=== PATIENT | male | born 1970 | race African-American/Black ===

== ENCOUNTER 2017-05-26 12:28 | Emergency (ER) | payer MEDICAID ==
[~2017-05-26] VITALS: Ht 165.1 cm; Wt 66.0 kg
[2017-05-26] MEDS ORDERED: BACITRACIN ZINC OINT UDPKT TOP ONE (14:30)
[2017-05-26] MEDS ORDERED: LIDOCAINE HCL 1% 20ML VIAL (Pyxis) INJ MC ONE (14:30)
[2017-05-26] MEDS ORDERED: TETANUS, DIPHTHERIA, PERTUSSIS VAC/PF 0.5ML (>7YR OLD) IM ONE (14:30)
[2017-05-26 15:45] VITALS: BP 110/63
== END 2017-05-26 16:01 | disposition home or self-care (01) ==
LOC: ER 12:28
PROC: 0HQFXZZ Repair Right Hand Skin, External Approach (ICD-10-PCS; principal; 2017-05-26)
DX: S61.218A Laceration without foreign body of other finger without damage to nail, initial encounter (principal); X58.XXXA Exposure to other specified factors, initial encounter; F12.10 Cannabis abuse, uncomplicated; F10.20 Alcohol dependence, uncomplicated; Y93.89 Activity, other specified; Y92.89 Other specified places as the place of occurrence of the external cause
CPT/HCPCS: 12002; 90471; 90715; 99284; J3490; X7700; Z7610

== ENCOUNTER 2017-06-06 15:31 | Emergency (ER) | payer MEDICAID ==
[~2017-06-06] VITALS: Ht 165.1 cm; Wt 68.0 kg
[2017-06-06 17:00] VITALS: BP 110/76
== END 2017-06-06 18:22 | disposition home or self-care (01) ==
LOC: ER 16:36
DX: S61.011D Laceration without foreign body of right thumb without damage to nail, subsequent encounter (principal); F12.10 Cannabis abuse, uncomplicated; X58.XXXD Exposure to other specified factors, subsequent encounter; Y93.89 Activity, other specified; Y92.89 Other specified places as the place of occurrence of the external cause; Y99.8 Other external cause status
CPT/HCPCS: 99281; Z7610

== ENCOUNTER 2017-11-27 05:54 | Emergency (ER) | payer SELFPAY ==
[~2017-11-27] VITALS: Ht 177.8 cm; Wt 73.0 kg
[2017-11-27] MEDS ORDERED: SODIUM CHLORIDE 0.9% 1,000 ML IV ONE (06:49)
[2017-11-27 07:07] LABS: BASOPHILS % 0.4 % (0.0-2.0); EOSINOPHILS % 1.8 % (0.0-5.0); HEMATOCRIT. 40.5 % (42.0-52.0); LYMPHOCYTES % 7.5 % (20.0-50.0); MEAN CORPUSCULAR VOLUME 98.4 fL (80.0-94.0); MEAN PLATELET VOLUME 8.4 fl (7.4-10.4); MONOCYTES % 9.8 % (2.0-8.0); NEUTROPHILS % 80.5 % (40.0-76.0); PLATELET 165 x1000/uL (130-400); RED BLOOD CELL COUNT 4.12 mill/uL (4.7-6.1); RED CELL DISTRIBUTION WIDTH 14.4 % (11.6-14.6)
[2017-11-27 07:14] LABS: INR 0.9; PROTHROMBIN TIME 9.4 sec (9.4-11.6)
[2017-11-27 07:24] LABS: CHLORIDE 100 mEq/L (98-107); TROPONIN I < 0.02 ng/mL (0.00-0.04)
[2017-11-27] MEDS ORDERED: ONDANSETRON HCL 4MG/2ML VIAL IV STA (08:24)
[2017-11-27] MEDS ORDERED: MORPHINE SULFATE 4 MG/ML CPJ (NOT FOR IM USE) IV STA (08:24)
[2017-11-27] MEDS ORDERED: IOHEXOL-350 100 ML BOTTLE ONE (08:47)
[2017-11-27] MEDS ORDERED: NITROGLYCERIN 50MG PREMIX 250 ML IV ONE (09:00)
[2017-11-27 09:27] LABS: TROPONIN I < 0.02 ng/mL (0.00-0.04)
[2017-11-27 11:33] VITALS: BP 116/83
== END 2017-11-27 11:37 | disposition home or self-care (01) ==
LOC: ER 05:54
DX: R07.9 Chest pain, unspecified (principal); F10.229 Alcohol dependence with intoxication, unspecified; F19.10 Other psychoactive substance abuse, uncomplicated; F14.10 Cocaine abuse, uncomplicated; F12.10 Cannabis abuse, uncomplicated; R10.9 Unspecified abdominal pain; Y90.4 Blood alcohol level of 80-99 mg/100 ml
CPT/HCPCS: 36415; 71045; 71275; 74174; 80053; 83690; 83880; 84484; 85025; 85610; 93005; 96361; 96374; 96375; 99285; G0482; J2270; J2405; J7030; Q9967

== ENCOUNTER 2019-04-21 14:29 | Emergency (ER) | payer MEDICAID ==
[~2019-04-21] VITALS: Ht 167.6 cm; Wt 70.0 kg
[2019-04-21 15:32] VITALS: BP 156/100
== END 2019-04-21 16:30 | disposition left against medical advice (07) ==
LOC: ER 14:29
DX: Z53.21 Procedure and treatment not carried out due to patient leaving prior to being seen by health care provider (principal)

== ENCOUNTER 2019-08-02 17:27 | Inpatient (IN) | payer MEDICAID ==
[~2019-08-02] VITALS: Ht 165.1 cm; Wt 65.3 kg
[2019-08-02] MEDS ORDERED: SODIUM CHLORIDE 0.9% 1,000 ML IV ONE (18:27)
[2019-08-02] MEDS ORDERED: MORPHINE SULFATE 4 MG/ML CPJ (NOT FOR IM USE) IV STA (18:27)
[2019-08-02 18:45] LABS: BASOPHILS % 0.6 % (0.0-2.0); EOSINOPHILS % 0.2 % (0.0-5.0); HEMOGLOBIN. 13.5 g/dL (14.0-18.0); LYMPHOCYTES % 7.6 % (20.0-50.0); MEAN CORPUSCULAR HEMOGLOBIN 35.5 pg (28.0-32.0); MEAN CORPUSCULAR VOLUME 105.3 fL (80.0-94.0); MEAN PLATELET VOLUME 8.2 fl (7.4-10.4); NEUTROPHILS % 85.6 % (40.0-76.0); PLATELET 156 x1000/uL (130-400); RED CELL DISTRIBUTION WIDTH 14.3 % (11.6-14.6)
[2019-08-02 18:46] LABS: CLARITY URINE CLEAR (CLEAR); COLOR URINE YELLOW (YELLOW); KETONES URINE 2+ (NEGATIVE); LEUKOCYTE ESTERASE URINE NEGATIVE (NEGATIVE); NITRITE URINE NEGATIVE (NEGATIVE); OCCULT BLOOD URINE NEGATIVE (NEGATIVE); PROTEIN URINE 2+ (NEGATIVE); SPECIFIC GRAVITY URINE 1.024 (1.005-1.030); UROBILINOGEN URINE 0.2 E.U./dL (0.2-1.0)
[2019-08-02 18:47] LABS: INR 0.9; PROTHROMBIN TIME 9.6 sec (9.6-11.0)
[2019-08-02 18:50] LABS: CHLORIDE 102 mEq/L (98-107)
[2019-08-02] MEDS ORDERED: MORPHINE SULFATE 4 MG/ML CPJ (NOT FOR IM USE) IV ONE (21:30)
[2019-08-02 23:30] VITALS: BP 155/80
[2019-08-03] MEDS: ONDANSETRON HCL 4MG/2ML INJ IV PRN (00:54)
[2019-08-03] MEDS: MORPHINE SULFATE 2 MG/ML CPJ (NOT FOR IM USE) IV PRN ×5 (00:55→18:22)
[2019-08-03] MEDS ORDERED: LORAZEPAM 2MG/ML CPJ IM PRN (01:15)
[2019-08-03] MEDS ORDERED: CLONIDINE 0.1MG TABLET PO PRN (01:15)
[2019-08-03] MEDS ORDERED: FOLIC ACID 1 MG, THIAMINE HCL 100 MG, MVI, ADULT NO.1 10 ML in DEXTROSE 5% WATER 1,000 ML IV NR ×4 (04:00)
[2019-08-03] MEDS: CHLORDIAZEPOXIDE 25MG CAPSULE PO SCH ×2 (05:53→13:57)
[2019-08-03 08:00] VITALS: BP 142/101
[2019-08-03] MEDS: ENOXAPARIN 40MG/0.4ML SYR SUBCUT SCH (08:44)
[2019-08-03 10:41] LABS: CHLORIDE 103 mEq/L (98-107)
[2019-08-03 10:43] LABS: HEMATOCRIT. 40.7 % (42.0-52.0); HEMOGLOBIN. 13.9 g/dL (14.0-18.0); MEAN CORPUSCULAR HEMOGLOBIN 36.1 pg (28.0-32.0); MEAN CORPUSCULAR VOLUME 105.7 fL (80.0-94.0); PLATELET 125 x1000/uL (130-400); RED BLOOD CELL COUNT 3.85 mill/uL (4.7-6.1); RED CELL DISTRIBUTION WIDTH 14.4 % (11.6-14.6)
[2019-08-03 12:00] VITALS: BP 158/109
[2019-08-03] MEDS ORDERED: SODIUM CHLORIDE 0.9% 1,000 ML IV SCH (12:00)
[2019-08-03 14:35] LABS: PLATELET ESTIMATE SLIGHTLY DECREASED
[2019-08-03] MEDS ORDERED: DIATR MEGLU/DIATRIZOATE SOLN 30ML PO NR (15:00)
[2019-08-03] MEDS ORDERED: BISACODYL 10MG SUPP PR PRN (15:00)
[2019-08-03 16:00] VITALS: BP 159/106
[2019-08-03] MEDS ORDERED: DIATR MEGLU/DIATRIZOATE SOLN 120ML ONE (17:48)
[2019-08-03 20:00] VITALS: BP 156/70
[2019-08-03 20:14] LABS: FOLIC ACID (FOLATE) SERUM >20 ng/mL ng/mL (>5.38)
[2019-08-03 20:26] LABS: VITAMIN B12 SERUM 879 pg/mL (211-911)
[2019-08-04] VITALS: BP 138/68
[2019-08-04] MEDS: CHLORDIAZEPOXIDE 25MG CAPSULE PO SCH ×4 (00:03→21:35)
[2019-08-04] MEDS: ONDANSETRON HCL 4MG/2ML INJ IV PRN (00:03)
[2019-08-04] MEDS: MORPHINE SULFATE 2 MG/ML CPJ (NOT FOR IM USE) IV PRN ×5 (00:06→23:24)
[2019-08-04 04:00] VITALS: BP 144/81
[2019-08-04 06:08] LABS: BASOPHILS % 0.3 % (0.0-2.0); EOSINOPHILS % 0.7 % (0.0-5.0); HEMATOCRIT. 39.7 % (42.0-52.0); HEMOGLOBIN. 13.7 g/dL (14.0-18.0); LYMPHOCYTES % 11.5 % (20.0-50.0); MEAN CORPUSCULAR VOLUME 104.7 fL (80.0-94.0); MEAN PLATELET VOLUME 8.3 fl (7.4-10.4); MONOCYTES % 7.5 % (2.0-8.0); PLATELET 109 x1000/uL (130-400); RED BLOOD CELL COUNT 3.79 mill/uL (4.7-6.1); RED CELL DISTRIBUTION WIDTH 14.2 % (11.6-14.6)
[2019-08-04 06:12] LABS: CHLORIDE 101 mEq/L (98-107)
[2019-08-04 08:00] VITALS: BP 129/95
[2019-08-04] MEDS: MULTIVITAMINS,THER W-MINERALS TABLET PO SCH (08:36)
[2019-08-04] MEDS: ENOXAPARIN 40MG/0.4ML SYR SUBCUT SCH (08:36)
[2019-08-04] MEDS ORDERED: POTASSIUM CHLORIDE INJ 40 MEQ in DEXT 5% WATER 500 ML IV NR (09:30)
[2019-08-04 12:00] VITALS: BP 127/100
[2019-08-04 16:00] VITALS: BP 128/92
[2019-08-04 20:00] VITALS: BP 131/89
[2019-08-04] MEDS ORDERED: DEXTROSE 50% WATER 50ML SYRINGE IV PRN (22:30)
[2019-08-04] MEDS: INSULIN LISPRO 100 UNITS/ML SUBCUT SCH (23:32)
[2019-08-04] MEDS: BLOOD SUGAR DIAGNOSTIC STRIP TEST SCH (23:32)
[2019-08-05] VITALS: BP 126/88
[2019-08-05 04:00] VITALS: BP 105/72
[2019-08-05] MEDS: CHLORDIAZEPOXIDE 25MG CAPSULE PO SCH (05:28)
[2019-08-05] MEDS: MORPHINE SULFATE 2 MG/ML CPJ (NOT FOR IM USE) IV PRN ×2 (05:51→10:54)
[2019-08-05] MEDS: BLOOD SUGAR DIAGNOSTIC STRIP TEST SCH (06:00)
[2019-08-05] MEDS: INSULIN LISPRO 100 UNITS/ML SUBCUT SCH (06:00)
[2019-08-05 07:38] LABS: BASOPHILS % 0.2 % (0.0-2.0); HEMATOCRIT. 37.4 % (42.0-52.0); HEMOGLOBIN. 12.6 g/dL (14.0-18.0); LYMPHOCYTES % 10.2 % (20.0-50.0); MEAN CORPUSCULAR HEMOGLOBIN 35.5 pg (28.0-32.0); MEAN CORPUSCULAR VOLUME 105.2 fL (80.0-94.0); MEAN PLATELET VOLUME 8.2 fl (7.4-10.4); MONOCYTES % 10.4 % (2.0-8.0); NEUTROPHILS % 78.2 % (40.0-76.0); PLATELET 105 x1000/uL (130-400); RED BLOOD CELL COUNT 3.56 mill/uL (4.7-6.1); RED CELL DISTRIBUTION WIDTH 14.3 % (11.6-14.6)
[2019-08-05 08:00] VITALS: BP 110/72
[2019-08-05 08:11] LABS: CHLORIDE 104 mEq/L (98-107)
[2019-08-05 08:19] LABS: AMYLASE 136 IU/L (25-115)
[2019-08-05] MEDS: MULTIVITAMINS,THER W-MINERALS TABLET PO SCH (09:22)
[2019-08-05] MEDS: ENOXAPARIN 40MG/0.4ML SYR SUBCUT SCH (09:22)
[2019-08-05 10:54] VITALS: BP 113/77
== END 2019-08-05 11:55 | disposition left against medical advice (07) | DRG 282 ==
LOC: ER 17:40 → ENRESERV 21:54 → 6EST 22:00 → EDBEDREQ 22:03 → EDBEDREQTM 22:03
PROVIDERS: ADMIT Internal Medicine; ATTEND Internal Medicine
DX: K85.20 Alcohol induced acute pancreatitis without necrosis or infection (principal); K76.0 Fatty (change of) liver, not elsewhere classified; E11.65 Type 2 diabetes mellitus with hyperglycemia; D50.9 Iron deficiency anemia, unspecified; K57.90 Diverticulosis of intestine, part unspecified, without perforation or abscess without bleeding; D53.9 Nutritional anemia, unspecified; F10.10 Alcohol abuse, uncomplicated; K59.00 Constipation, unspecified; K86.0 Alcohol-induced chronic pancreatitis; Z79.4 Long term (current) use of insulin
CPT/HCPCS: 36415; 71045; 74176; 80048; 80076; 81003; 82150; 82607; 82746; 82962; 83036; 83605; 83735; 84484; 93005; 93970; 96361; 96365; 96372; 96375; 96376; 97161; 97165; 99285; J1650; J2270; J2405; J3411; J3480; J3490; J7030; J7040; J7060; J7070; Q9963

== ENCOUNTER 2019-11-11 14:26 | Emergency (ER) | payer MEDICAID ==
[~2019-11-11] VITALS: Ht 172.7 cm; Wt 70.0 kg
[2019-11-11 16:03] LABS: CHLORIDE 104 mEq/L (98-107)
[2019-11-11 16:05] LABS: BASOPHILS % 0.6 % (0.0-2.0); EOSINOPHILS % 0.6 % (0.0-5.0); HEMATOCRIT. 36.8 % (42.0-52.0); HEMOGLOBIN. 12.4 g/dL (14.0-18.0); LYMPHOCYTES % 14.1 % (20.0-50.0); MEAN CORPUSCULAR HEMOGLOBIN 34.5 pg (28.0-32.0); MEAN CORPUSCULAR VOLUME 102.1 fL (80.0-94.0); MONOCYTES % 10.4 % (2.0-8.0); NEUTROPHILS % 74.3 % (40.0-76.0); PLATELET 288 x1000/uL (130-400); RED CELL DISTRIBUTION WIDTH 15.5 % (11.6-14.6)
[2019-11-11 16:07] LABS: ETHANOL BLOOD 131 mg/dL
[2019-11-11] MEDS ORDERED: KETOROLAC 60MG/2ML VIAL IM ONE (16:45)
[2019-11-11] MEDS ORDERED: ONDANSETRON HCL 4MG/2ML INJ IV STA (18:28)
[2019-11-11] MEDS ORDERED: MORPHINE SULFATE 4 MG/ML CPJ (NOT FOR IM USE) IV STA (18:28)
[2019-11-11 19:15] VITALS: BP 132/93
== END 2019-11-11 19:43 | disposition home or self-care (01) ==
LOC: ER 14:26
DX: R10.9 Unspecified abdominal pain (principal); K85.90 Acute pancreatitis without necrosis or infection, unspecified
CPT/HCPCS: 36415; 71045; 74176; 80053; 80320; 83690; 85025; 93005; 96372; 96374; 96375; 99284; J1885; J2270; J2405; G0480

== ENCOUNTER 2019-11-15 02:41 | Inpatient (IN) | payer MEDICAID ==
[~2019-11-15] VITALS: Ht 165.1 cm; Wt 65.8 kg
[2019-11-15] MEDS ORDERED: ONDANSETRON HCL 4MG/2ML INJ IV STA (04:01)
[2019-11-15] MEDS ORDERED: FAMOTIDINE 20MG/2ML VIAL IV STA (04:01)
[2019-11-15] MEDS ORDERED: SODIUM CHLORIDE 0.9% 1,000 ML IV ONE (04:01)
[2019-11-15] MEDS ORDERED: MORPHINE SULFATE 4 MG/ML CPJ (NOT FOR IM USE) IV STA (04:01)
[2019-11-15 04:15] LABS: CHLORIDE 100 mEq/L (98-107)
[2019-11-15 04:28] LABS: BASOPHILS % 0.5 % (0.0-2.0); EOSINOPHILS % 1.7 % (0.0-5.0); HEMATOCRIT. 39.1 % (42.0-52.0); HEMOGLOBIN. 13.3 g/dL (14.0-18.0); LYMPHOCYTES % 13.4 % (20.0-50.0); MEAN CORPUSCULAR HEMOGLOBIN 34.3 pg (28.0-32.0); MEAN CORPUSCULAR VOLUME 101.1 fL (80.0-94.0); MEAN PLATELET VOLUME 8.9 fl (7.4-10.4); MONOCYTES % 13.9 % (2.0-8.0); NEUTROPHILS % 70.5 % (40.0-76.0); PLATELET 247 x1000/uL (130-400); RED BLOOD CELL COUNT 3.87 mill/uL (4.7-6.1); RED CELL DISTRIBUTION WIDTH 15.1 % (11.6-14.6)
[2019-11-15 08:12] LABS: CLARITY URINE CLEAR (CLEAR); COLOR URINE DK YELLOW (YELLOW); KETONES URINE 1+ (NEGATIVE); LEUKOCYTE ESTERASE URINE NEGATIVE (NEGATIVE); NITRITE URINE NEGATIVE (NEGATIVE); OCCULT BLOOD URINE NEGATIVE (NEGATIVE); PROTEIN URINE 1+ (NEGATIVE); SPECIFIC GRAVITY URINE 1.021 (1.005-1.030)
[2019-11-15 08:30] LABS: *AMPHETAMINES SCREEN URINE NEGATIVE (NEGATIVE); *BARBITURATES SCREEN URINE NEGATIVE (NEGATIVE); *BENZODIAZEPINES SCREEN URINE NEGATIVE (NEGATIVE); *COCAINE SCREEN URINE NEGATIVE (NEGATIVE); METHADONE URINE SCREEN NEGATIVE (NEGATIVE); OPIATES URINE SCREEN PRESUMTIVE POSITIVE (NEGATIVE)
[2019-11-15 08:31] LABS: CANNABINOID URINE SCREEN PRESUMTIVE POSITIVE (NEGATIVE); PHENCYCLIDINE URINE SCREEN NEGATIVE (NEGATIVE)
[2019-11-15 09:11] VITALS: BP 173/110
[2019-11-15 09:13] VITALS: BP 173/110
[2019-11-15] MEDS ORDERED: DIPHENHYDRAMINE 50MG/ML VIAL IV PRN ×2 (09:30→17:45)
[2019-11-15] MEDS ORDERED: ONDANSETRON HCL 4MG/2ML INJ IV PRN (09:30)
[2019-11-15] MEDS ORDERED: CLONIDINE 0.1MG TABLET PO PRN (09:30)
[2019-11-15] MEDS: ENOXAPARIN 40MG/0.4ML SYR SUBCUT SCH (10:21)
[2019-11-15] MEDS ORDERED: DEXTROSE 50% WATER 50ML SYRINGE IV PRN (11:15)
[2019-11-15 11:23] LABS: PHOSPHORUS 3.1 mg/dL (2.5-4.9)
[2019-11-15] MEDS: HYDROMORPHONE HCL/PF 2MG/ML CPJ IV PRN ×3 (11:58→21:09)
[2019-11-15] MEDS: DEXT 5%/0.9% NACL 1,000 ML IV SCH ×2 (12:01→23:20)
[2019-11-15] MEDS: BLOOD SUGAR DIAGNOSTIC STRIP TEST SCH ×3 (12:20→21:34)
[2019-11-15] MEDS: INSULIN LISPRO 100 UNITS/ML SUBCUT SCH ×3 (12:20→21:00)
[2019-11-15 12:30] VITALS: BP 157/109
[2019-11-15 16:00] VITALS: BP 171/111
[2019-11-15] MEDS ORDERED: ACETAMINOPHEN 325MG TABLET PO PRN (17:45)
[2019-11-15 20:00] VITALS: BP 175/95
[2019-11-16] VITALS: BP 118/83
[2019-11-16] MEDS: ZOLPIDEM TARTRATE 5MG TABLET PO PRN ×3 (00:03→23:36)
[2019-11-16] MEDS: HYDROMORPHONE HCL/PF 2MG/ML CPJ IV PRN ×6 (00:21→22:23)
[2019-11-16 04:00] VITALS: BP 125/87
[2019-11-16] MEDS: BLOOD SUGAR DIAGNOSTIC STRIP TEST SCH ×4 (06:19→21:05)
[2019-11-16 07:40] LABS: BASOPHILS % 0.3 % (0.0-2.0); EOSINOPHILS % 2.5 % (0.0-5.0); HEMATOCRIT. 35.8 % (42.0-52.0); HEMOGLOBIN. 12.4 g/dL (14.0-18.0); MEAN CORPUSCULAR HEMOGLOBIN 35.1 pg (28.0-32.0); MEAN CORPUSCULAR VOLUME 101.1 fL (80.0-94.0); MEAN PLATELET VOLUME 8.7 fl (7.4-10.4); MONOCYTES % 14.2 % (2.0-8.0); PLATELET 181 x1000/uL (130-400); RED BLOOD CELL COUNT 3.54 mill/uL (4.7-6.1); RED CELL DISTRIBUTION WIDTH 14.8 % (11.6-14.6)
[2019-11-16 07:54] LABS: CHLORIDE 103 mEq/L (98-107)
[2019-11-16 08:00] VITALS: BP 136/85
[2019-11-16 08:05] LABS: HDL CHOLESTEROL 73 mg/dL (40-59)
[2019-11-16 08:08] LABS: HEPATITIS B SURFACE ANTIGEN NEGATIVE
[2019-11-16] MEDS: INSULIN LISPRO 100 UNITS/ML SUBCUT SCH ×4 (08:10→21:00)
[2019-11-16 08:13] LABS: LDL CHOLESTEROL 56 mg/dL (5-100)
[2019-11-16 08:16] LABS: AMYLASE 127 IU/L (25-115)
[2019-11-16 08:37] LABS: HEPATITIS A AB IGM NEGATIVE (NEGATIVE)
[2019-11-16] MEDS: ENOXAPARIN 40MG/0.4ML SYR SUBCUT SCH (09:07)
[2019-11-16 12:00] VITALS: BP 132/83
[2019-11-16] MEDS: DEXT 5%/0.9% NACL 1,000 ML IV SCH (13:00)
[2019-11-16 16:00] VITALS: BP 116/65
[2019-11-16] MEDS ORDERED: GUAIFENESIN-DM 200MG-20MG/10ML UDC PO PRN (17:00)
[2019-11-16] MEDS ORDERED: GUAIFENESIN 200MG/10ML SUGAR FREE UDC PO PRN ×2 (18:00→18:06)
[2019-11-16 20:00] VITALS: BP 124/81
[2019-11-17] VITALS: BP 118/75
[2019-11-17] MEDS: HYDROMORPHONE HCL/PF 2MG/ML CPJ IV PRN ×4 (02:07→20:40)
[2019-11-17 04:00] VITALS: BP 94/72
[2019-11-17] MEDS: DEXT 5%/0.9% NACL 1,000 ML IV SCH ×2 (04:30→17:08)
[2019-11-17] MEDS: BLOOD SUGAR DIAGNOSTIC STRIP TEST SCH ×4 (06:18→20:55)
[2019-11-17 06:51] LABS: BASOPHILS % 0.4 % (0.0-2.0); EOSINOPHILS % 3.4 % (0.0-5.0); HEMATOCRIT. 34.9 % (42.0-52.0); HEMOGLOBIN. 11.6 g/dL (14.0-18.0); LYMPHOCYTES % 13.9 % (20.0-50.0); MEAN CORPUSCULAR VOLUME 102.1 fL (80.0-94.0); MEAN PLATELET VOLUME 8.6 fl (7.4-10.4); MONOCYTES % 14.4 % (2.0-8.0); NEUTROPHILS % 67.9 % (40.0-76.0); PLATELET 197 x1000/uL (130-400); RED BLOOD CELL COUNT 3.42 mill/uL (4.7-6.1)
[2019-11-17 08:00] VITALS: BP 130/70
[2019-11-17] MEDS: INSULIN LISPRO 100 UNITS/ML SUBCUT SCH ×4 (08:10→20:55)
[2019-11-17 08:17] LABS: CHLORIDE 102 mEq/L (98-107)
[2019-11-17] MEDS: ENOXAPARIN 40MG/0.4ML SYR SUBCUT SCH (08:51)
[2019-11-17 09:21] LABS: AMYLASE 96 IU/L (25-115)
[2019-11-17 16:00] VITALS: BP 137/88
[2019-11-18] MEDS: DEXT 5%/0.9% NACL 1,000 ML IV SCH (03:59)
[2019-11-18] MEDS: HYDROMORPHONE HCL/PF 2MG/ML CPJ IV PRN ×3 (04:02→12:45)
[2019-11-18] MEDS: BLOOD SUGAR DIAGNOSTIC STRIP TEST SCH ×2 (06:02→11:45)
[2019-11-18] MEDS: INSULIN LISPRO 100 UNITS/ML SUBCUT SCH ×2 (07:28→12:44)
[2019-11-18 08:30] VITALS: BP 138/92
[2019-11-18] MEDS: ENOXAPARIN 40MG/0.4ML SYR SUBCUT SCH (08:42)
[2019-11-18 11:36] VITALS: BP 130/88
[2019-11-18 12:50] VITALS: BP 130/88
== END 2019-11-18 14:11 | disposition home or self-care (01) | DRG 282 ==
LOC: ER 02:41 → 7WST 05:02 → EDBEDREQ 05:05 → EDBEDREQTM 05:05 → ENRESERV 07:35
PROVIDERS: ADMIT Internal Medicine; ATTEND Internal Medicine
DX: K85.20 Alcohol induced acute pancreatitis without necrosis or infection (principal); E83.42 Hypomagnesemia; D53.9 Nutritional anemia, unspecified; K57.90 Diverticulosis of intestine, part unspecified, without perforation or abscess without bleeding; K86.1 Other chronic pancreatitis; R74.0 Nonspecific elevation of levels of transaminase and lactic acid dehydrogenase [LDH]; R74.8 Abnormal levels of other serum enzymes; R73.9 Hyperglycemia, unspecified; Z79.899 Other long term (current) drug therapy
CPT/HCPCS: 36415; 80048; 80053; 80061; 80305; 81003; 82150; 82962; 83036; 83605; 83735; 84100; 84443; 85025; 86705; 86709; 86803; 87340; 93970; 96365; 96372; 96375; 99285; J1170; J1200; J1650; J2270; J2405; J3490; J7030; J7042

== ENCOUNTER 2019-11-27 08:22 | Inpatient (IN) | payer MEDICAID ==
[~2019-11-27] VITALS: Ht 165.1 cm; Wt 61.2 kg
[2019-11-27] MEDS ORDERED: SODIUM CHLORIDE 0.9% 1,000 ML IV ONE ×2 (10:43→12:08)
[2019-11-27] MEDS ORDERED: KETOROLAC 30MG/ML VIAL IV STA (10:43)
[2019-11-27] MEDS ORDERED: ONDANSETRON HCL 4MG/2ML INJ IV STA (10:43)
[2019-11-27] MEDS ORDERED: MORPHINE SULFATE 4 MG/ML CPJ (NOT FOR IM USE) IV STA (10:43)
[2019-11-27 11:27] LABS: HEMATOCRIT. 38.9 % (42.0-52.0); HEMOGLOBIN. 13.4 g/dL (14.0-18.0); MEAN CORPUSCULAR HEMOGLOBIN 34.9 pg (28.0-32.0); MEAN CORPUSCULAR VOLUME 101.1 fL (80.0-94.0); MEAN PLATELET VOLUME 7.3 fl (7.4-10.4); PLATELET 427 x1000/uL (130-400); RED BLOOD CELL COUNT 3.85 mill/uL (4.7-6.1); RED CELL DISTRIBUTION WIDTH 14.7 % (11.6-14.6)
[2019-11-27 11:32] LABS: CHLORIDE 102 mEq/L (98-107); PROTHROMBIN TIME 10.7 sec (9.6-11.0)
[2019-11-27 11:57] LABS: PLATELET ESTIMATE INCREASED
[2019-11-27 12:18] LABS: CLARITY URINE CLEAR (CLEAR); COLOR URINE YELLOW (YELLOW); KETONES URINE 2+ (NEGATIVE); LEUKOCYTE ESTERASE URINE NEGATIVE (NEGATIVE); NITRITE URINE NEGATIVE (NEGATIVE); OCCULT BLOOD URINE NEGATIVE (NEGATIVE); PROTEIN URINE 1+ (NEGATIVE); SPECIFIC GRAVITY URINE 1.018 (1.005-1.030)
[2019-11-27] MEDS ORDERED: PIPERACILLIN/TAZ 3.375G PREMIX 50 ML IV ONE (13:15)
[2019-11-27] MEDS ORDERED: SODIUM CHLORIDE 0.9% 1000ML BAG (SEPSIS BOLUS) IV ONE (13:15)
[2019-11-27 14:58] LABS: AMYLASE 335 IU/L (25-115)
[2019-11-27 16:00] VITALS: BP 139/98
[2019-11-27 16:05] VITALS: BP 139/98
[2019-11-27] MEDS ORDERED: ONDANSETRON HCL 4MG/2ML INJ IV PRN (17:39)
[2019-11-27] MEDS: MORPHINE SULFATE 2 MG/ML CPJ (NOT FOR IM USE) IV PRN ×2 (18:01→23:34)
[2019-11-27 20:00] VITALS: BP 158/107
[2019-11-27] MEDS ORDERED: GUAIFENESIN 200MG/10ML SUGAR FREE UDC PO PRN (20:30)
[2019-11-27] MEDS ORDERED: ACETAMINOPHEN 325MG TABLET PO PRN (20:30)
[2019-11-27] MEDS ORDERED: HYDROCODONE/ACETAMINOPHEN 5/325MG TABLET PO PRN (20:30)
[2019-11-27] MEDS ORDERED: MAGNESIUM/ALUMINUM HYDROXIDE/SIMETHICONE 30ML UDC PO PRN (20:30)
[2019-11-27] MEDS ORDERED: ACETAMINOPHEN 650MG/20.3ML UDC GT PRN (20:30)
[2019-11-27] MEDS: HYDROCODONE/ACETAMINOPHEN 10/325MG TABLET PO PRN (20:46)
[2019-11-27] MEDS: SODIUM CHLORIDE 0.9% INJ 3ML FLUSH IVF SCH (20:48)
[2019-11-27] MEDS ORDERED: SODIUM CHLORIDE 0.45% 1,000 ML IV SCH (21:00)
[2019-11-27] MEDS ORDERED: NA PHOS,M-B/NA PHOS,DI-BA ENEMA 118ML PR PRN (21:00)
[2019-11-27] MEDS: DOCUSATE SODIUM 100MG CAPSULE PO PRN (23:38)
[2019-11-28] VITALS: BP 135/99
[2019-11-28] MEDS: MORPHINE SULFATE 2 MG/ML CPJ (NOT FOR IM USE) IV PRN ×5 (03:53→22:52)
[2019-11-28 04:00] VITALS: BP_SYST 139; BP_SYST 152; BP_DIAS 85; BP_DIAS 95
[2019-11-28 05:13] LABS: CLARITY URINE CLOUDY (CLEAR); COLOR URINE YELLOW (YELLOW); KETONES URINE 3+ (NEGATIVE); LEUKOCYTE ESTERASE URINE NEGATIVE (NEGATIVE); NITRITE URINE NEGATIVE (NEGATIVE); OCCULT BLOOD URINE NEGATIVE (NEGATIVE); PH URINE 5.5 (4.5-8.0); PROTEIN URINE 1+ (NEGATIVE); SPECIFIC GRAVITY URINE 1.024 (1.005-1.030)
[2019-11-28 05:15] LABS: *AMPHETAMINES SCREEN URINE NEGATIVE (NEGATIVE); *BARBITURATES SCREEN URINE NEGATIVE (NEGATIVE); *BENZODIAZEPINES SCREEN URINE NEGATIVE (NEGATIVE); *COCAINE SCREEN URINE NEGATIVE (NEGATIVE); METHADONE URINE SCREEN NEGATIVE (NEGATIVE)
[2019-11-28 05:16] LABS: CANNABINOID URINE SCREEN PRESUMTIVE POSITIVE (NEGATIVE); OPIATES URINE SCREEN PRESUMTIVE POSITIVE (NEGATIVE); PHENCYCLIDINE URINE SCREEN NEGATIVE (NEGATIVE)
[2019-11-28] MEDS: SODIUM CHLORIDE 0.9% INJ 3ML FLUSH IVF SCH ×3 (06:39→22:00)
[2019-11-28 08:00] VITALS: BP 153/112
[2019-11-28] MEDS: SODIUM CHLORIDE 0.9% 1,000 ML IV SCH ×2 (08:45→18:45)
[2019-11-28 10:24] LABS: HEMATOCRIT. 41.1 % (42.0-52.0); HEMOGLOBIN. 13.9 g/dL (14.0-18.0); MEAN CORPUSCULAR HEMOGLOBIN 34.7 pg (28.0-32.0); MEAN CORPUSCULAR VOLUME 102.3 fL (80.0-94.0); MEAN PLATELET VOLUME 7.6 fl (7.4-10.4); PLATELET 453 x1000/uL (130-400); RED BLOOD CELL COUNT 4.02 mill/uL (4.7-6.1); RED CELL DISTRIBUTION WIDTH 14.9 % (11.6-14.6)
[2019-11-28 10:44] LABS: CHLORIDE 103 mEq/L (98-107)
[2019-11-28 12:00] VITALS: BP 148/98
[2019-11-28 16:00] VITALS: BP 160/78
[2019-11-28 20:00] VITALS: BP 148/111
[2019-11-28] MEDS: DOCUSATE SODIUM 100MG CAPSULE PO PRN (20:38)
[2019-11-29] VITALS: BP 154/103
[2019-11-29] MEDS: MORPHINE SULFATE 2 MG/ML CPJ (NOT FOR IM USE) IV PRN ×4 (02:57→18:10)
[2019-11-29 04:00] VITALS: BP 134/86
[2019-11-29] MEDS: SODIUM CHLORIDE 0.9% 1,000 ML IV SCH ×2 (04:45→18:01)
[2019-11-29] MEDS: SODIUM CHLORIDE 0.9% INJ 3ML FLUSH IVF SCH ×2 (06:00→14:02)
[2019-11-29 08:00] VITALS: BP 134/96
[2019-11-29] MEDS ORDERED: GADOBENATE DIMEGLUMINE 529 MG/ML 10ML IV ONE (08:26)
[2019-11-29 12:00] VITALS: BP 148/102
[2019-11-29] MEDS: HYDROCODONE/ACETAMINOPHEN 10/325MG TABLET PO PRN (12:49)
[2019-11-29 16:00] VITALS: BP 152/110
[2019-11-29 17:11] LABS: PLATELET ESTIMATE INCREASED
[2019-11-29 17:13] LABS: CHLORIDE 101 mEq/L (98-107)
[2019-11-29 20:00] VITALS: BP 140/100
[2019-11-29] MEDS: HYDROMORPHONE HCL/PF 2MG/ML CPJ IV PRN (20:32)
[2019-11-29] MEDS ORDERED: POTASSIUM CHLORIDE INJ 40 MEQ in DEXT 5% WATER 500 ML IV NR (21:00)
[2019-11-30] VITALS: BP 143/100
[2019-11-30] MEDS: HYDROMORPHONE HCL/PF 2MG/ML CPJ IV PRN ×6 (01:02→23:08)
[2019-11-30 04:00] VITALS: BP 140/114
[2019-11-30] MEDS: SODIUM CHLORIDE 0.9% INJ 3ML FLUSH IVF SCH ×4 (05:56→23:25)
[2019-11-30 08:00] VITALS: BP 128/89
[2019-11-30] MEDS: SODIUM CHLORIDE 0.9% 1,000 ML IV SCH (10:45)
[2019-11-30 12:00] VITALS: BP 147/67
[2019-11-30 16:00] VITALS: BP 158/88
[2019-11-30 20:00] VITALS: BP 123/90
[2019-11-30] MEDS ORDERED: ZINC SULF/CUSO4 P-HYD/MANG/CR 10 ML VIAL IV SCH (21:15)
[2019-12-01] VITALS: BP 120/88
[2019-12-01] MEDS ORDERED: FOLIC ACID 1 MG, THIAMINE HCL 100 MG, MVI, ADULT NO.1 10 ML in DEXTROSE 5% WATER 1,000 ML IV SCH ×4
[2019-12-01] MEDS: HYDROMORPHONE HCL/PF 2MG/ML CPJ IV PRN ×6 (03:14→23:55)
[2019-12-01 04:00] VITALS: BP 127/90
[2019-12-01] MEDS: SODIUM CHLORIDE 0.9% INJ 3ML FLUSH IVF SCH ×3 (06:40→22:52)
[2019-12-01] MEDS: DEXT 5%/0.9% NACL 1,000 ML IV SCH ×2 (07:30→20:58)
[2019-12-01 08:00] VITALS: BP 145/106
[2019-12-01] MEDS: FAMOTIDINE 20MG/2ML VIAL IV SCH (08:40)
[2019-12-01 09:12] LABS: BASOPHILS % 0.7 % (0.0-2.0); EOSINOPHILS % 1.7 % (0.0-5.0); HEMATOCRIT. 35.1 % (42.0-52.0); LYMPHOCYTES % 11.5 % (20.0-50.0); MEAN CORPUSCULAR HEMOGLOBIN 34.3 pg (28.0-32.0); MEAN PLATELET VOLUME 7.8 fl (7.4-10.4); MONOCYTES % 13.3 % (2.0-8.0); NEUTROPHILS % 72.8 % (40.0-76.0); PLATELET 448 x1000/uL (130-400); RED BLOOD CELL COUNT 3.51 mill/uL (4.7-6.1); RED CELL DISTRIBUTION WIDTH 14.9 % (11.6-14.6)
[2019-12-01 09:23] LABS: CHLORIDE 95 mEq/L (98-107)
[2019-12-01 12:00] VITALS: BP 135/80
[2019-12-01 16:00] VITALS: BP 144/88
[2019-12-01 20:00] VITALS: BP 147/93
[2019-12-02] VITALS: BP 144/95
[2019-12-02 04:00] VITALS: BP 146/100
[2019-12-02] MEDS: HYDROMORPHONE HCL/PF 2MG/ML CPJ IV PRN ×4 (05:33→19:52)
[2019-12-02] MEDS: SODIUM CHLORIDE 0.9% INJ 3ML FLUSH IVF SCH ×3 (05:34→22:00)
[2019-12-02] MEDS: DEXT 5%/0.9% NACL 1,000 ML IV SCH (05:58)
[2019-12-02 08:00] VITALS: BP 159/118
[2019-12-02] MEDS: FAMOTIDINE 20MG/2ML VIAL IV SCH (09:42)
[2019-12-02 12:00] VITALS: BP 170/118
[2019-12-02] MEDS ORDERED: BISACODYL 10MG SUPP PR PRN (12:00)
[2019-12-02] MEDS ORDERED: DIATR MEGLU/DIATRIZOATE SOLN 120ML ONE (13:21)
[2019-12-02] MEDS: HYDRALAZINE 10 MG in SODIUM CHLORIDE 0.9% 49.5 ML IV PRN (15:13)
[2019-12-02 16:00] VITALS: BP 158/90
[2019-12-02] MEDS: ACETAMINOPHEN 650MG SUPP PR PRN (18:03)
[2019-12-02 18:11] LABS: HEMATOCRIT. 37.9 % (42.0-52.0); MEAN CORPUSCULAR HEMOGLOBIN 34.4 pg (28.0-32.0); MEAN CORPUSCULAR VOLUME 100.6 fL (80.0-94.0); MEAN PLATELET VOLUME 8.6 fl (7.4-10.4); PLATELET 436 x1000/uL (130-400); RED BLOOD CELL COUNT 3.77 mill/uL (4.7-6.1); RED CELL DISTRIBUTION WIDTH 14.3 % (11.6-14.6)
[2019-12-02 18:34] LABS: CHLORIDE 98 mEq/L (98-107)
[2019-12-02 18:36] LABS: PLATELET ESTIMATE INCREASED
[2019-12-02 20:00] VITALS: BP 149/100
[2019-12-02] MEDS ORDERED: POTASSIUM CHLORIDE INJ 40 MEQ in DEXT 5% WATER 500 ML IV NR (21:00)
[2019-12-02 22:07] LABS: CHLORIDE 100 mEq/L (98-107)
[2019-12-02 22:16] LABS: PHOSPHORUS 2.9 mg/dL (2.5-4.9)
[2019-12-03] VITALS: BP 167/116
[2019-12-03] MEDS: HYDROMORPHONE HCL/PF 2MG/ML CPJ IV PRN ×6 (00:08→21:25)
[2019-12-03 04:00] VITALS: BP 162/109
[2019-12-03] MEDS: ONDANSETRON HCL 4MG/2ML INJ IV PRN ×2 (04:28→13:25)
[2019-12-03] MEDS: HYDRALAZINE 10 MG in SODIUM CHLORIDE 0.9% 49.5 ML IV PRN ×2 (04:46→21:55)
[2019-12-03] MEDS: FOLIC ACID 1 MG, THIAMINE HCL 100 MG, MVI, ADULT NO.1 10 ML in DEXTROSE 5% WATER 1,000 ML IV SCH ×4 (06:15)
[2019-12-03] MEDS: SODIUM CHLORIDE 0.9% INJ 3ML FLUSH IVF SCH ×3 (06:16→21:55)
[2019-12-03 08:00] VITALS: BP 156/108
[2019-12-03] MEDS: FAMOTIDINE 20MG/2ML VIAL IV SCH (08:44)
[2019-12-03] MEDS ORDERED: POTASSIUM CHLORIDE INJ 40 MEQ in DEXT 5% WATER 500 ML IV SCH (11:00)
[2019-12-03 12:00] VITALS: BP 159/111
[2019-12-03] MEDS ORDERED: POTASSIUM CHLORIDE INJ 40 MEQ in DEXT 5% WATER 500 ML IV NR (12:30)
[2019-12-03] MEDS ORDERED: MAGNESIUM 2 G PREMIX 50 ML IV NR (14:00)
[2019-12-03 16:00] VITALS: BP 161/104
[2019-12-03 20:00] VITALS: BP 164/113
[2019-12-03] MEDS: SODIUM CHLORIDE 0.9% 1,000 ML IV SCH (22:07)
[2019-12-04] VITALS (7 sets, daily range): BP systolic 130–168; BP diastolic 86–107
[2019-12-04] LABS: CHLORIDE 95 mEq/L (98-107)
[2019-12-04] MEDS: HYDROMORPHONE HCL/PF 2MG/ML CPJ IV PRN ×5 (01:25→18:22)
[2019-12-04] MEDS ORDERED: POTASSIUM CHLORIDE INJ 40 MEQ in DEXT 5% WATER 500 ML IV NR (03:00)
[2019-12-04] MEDS: ONDANSETRON HCL 4MG/2ML INJ IV PRN (05:36)
[2019-12-04] MEDS: SODIUM CHLORIDE 0.9% INJ 3ML FLUSH IVF SCH ×2 (05:45→14:18)
[2019-12-04] MEDS: HYDRALAZINE 10 MG in SODIUM CHLORIDE 0.9% 49.5 ML IV PRN (07:03)
[2019-12-04 07:20] LABS: HEMATOCRIT. 34.9 % (42.0-52.0); HEMOGLOBIN. 12.1 g/dL (14.0-18.0); MEAN CORPUSCULAR HEMOGLOBIN 34.1 pg (28.0-32.0); MEAN CORPUSCULAR VOLUME 98.6 fL (80.0-94.0); MEAN PLATELET VOLUME 8.8 fl (7.4-10.4); PLATELET 420 x1000/uL (130-400); RED BLOOD CELL COUNT 3.54 mill/uL (4.7-6.1); RED CELL DISTRIBUTION WIDTH 14.4 % (11.6-14.6)
[2019-12-04 07:59] LABS: CHLORIDE 96 mEq/L (98-107)
[2019-12-04] MEDS: FAMOTIDINE 20MG/2ML VIAL IV SCH (08:52)
[2019-12-04] MEDS ORDERED: POTASSIUM CHLORIDE INJ 40 MEQ in DEXT 5% WATER 250 ML IV SCH (14:00)
[2019-12-04] MEDS: SODIUM CHLORIDE 0.9% 1,000 ML IV SCH (14:50)
[2019-12-04] MEDS: DEXT 5%/0.9% NACL 1,000 ML IV SCH (15:29)
[2019-12-04] MEDS: FOLIC ACID 1 MG, THIAMINE HCL 100 MG, MVI, ADULT NO.1 10 ML in DEXTROSE 5% WATER 1,000 ML IV SCH ×8 (21:16→21:22)
[2019-12-04 22:49] LABS: PLATELET ESTIMATE INCREASED
[2019-12-05] VITALS: BP 132/95
[2019-12-05] MEDS: HYDROMORPHONE HCL/PF 2MG/ML CPJ IV PRN ×6 (00:38→22:42)
[2019-12-05] MEDS: SODIUM CHLORIDE 0.9% 1,000 ML IV SCH ×3 (00:45→20:45)
[2019-12-05] MEDS: DEXT 5%/0.9% NACL 1,000 ML IV SCH ×3 (01:30→21:30)
[2019-12-05 04:00] VITALS: BP 139/97
[2019-12-05] MEDS: SODIUM CHLORIDE 0.9% INJ 3ML FLUSH IVF SCH ×2 (05:04→14:00)
[2019-12-05] MEDS: FAMOTIDINE 20MG/2ML VIAL IV SCH (09:18)
[2019-12-05 12:00] VITALS: BP 137/99
[2019-12-05 18:51] LABS: HEMATOCRIT 34.5 % (42.0-52.0); HEMOGLOBIN 11.7 g/dL (14.0-18.0)
[2019-12-05 20:00] VITALS: BP 146/106
[2019-12-05] MEDS: PANTOPRAZOLE SODIUM 40 MG/VIAL IV SCH (21:10)
[2019-12-06] VITALS: BP 129/93
[2019-12-06] MEDS: HYDROMORPHONE HCL/PF 2MG/ML CPJ IV PRN ×5 (03:30→20:55)
[2019-12-06 04:00] VITALS: BP 147/102
[2019-12-06] MEDS: FOLIC ACID 1 MG, THIAMINE HCL 100 MG, MVI, ADULT NO.1 10 ML in DEXTROSE 5% WATER 1,000 ML IV SCH ×4 (05:02)
[2019-12-06] MEDS: SODIUM CHLORIDE 0.9% INJ 3ML FLUSH IVF SCH ×2 (05:07→14:00)
[2019-12-06 07:27] LABS: HEMOGLOBIN. 12.1 g/dL (14.0-18.0); MEAN CORPUSCULAR HEMOGLOBIN 33.5 pg (28.0-32.0); MEAN CORPUSCULAR VOLUME 99.7 fL (80.0-94.0); MEAN PLATELET VOLUME 8.5 fl (7.4-10.4); PLATELET 386 x1000/uL (130-400); RED BLOOD CELL COUNT 3.61 mill/uL (4.7-6.1); RED CELL DISTRIBUTION WIDTH 14.6 % (11.6-14.6)
[2019-12-06] MEDS: PANTOPRAZOLE SODIUM 40 MG/VIAL IV SCH ×2 (08:10→20:54)
[2019-12-06] MEDS: FAMOTIDINE 20MG/2ML VIAL IV SCH (08:11)
[2019-12-06 08:35] LABS: CHLORIDE 95 mEq/L (98-107)
[2019-12-06 13:40] LABS: PLATELET ESTIMATE NORMAL
[2019-12-06] MEDS: DEXT 5%/0.9% NACL 1,000 ML IV SCH (17:42)
[2019-12-06] MEDS: SODIUM CHLORIDE 0.9% 1,000 ML IV SCH (17:42)
[2019-12-06 20:00] VITALS: BP 157/112
[2019-12-06] MEDS ORDERED: DEXT 5%/0.45% NACL KCL 40MEQ/L 1,000 ML IV ONE (20:30)
[2019-12-07] VITALS (7 sets, daily range): BP systolic 140–170; BP diastolic 94–116
[2019-12-07] MEDS: HYDROMORPHONE HCL/PF 2MG/ML CPJ IV PRN ×5 (01:48→22:08)
[2019-12-07] MEDS: SODIUM CHLORIDE 0.9% INJ 3ML FLUSH IVF SCH ×3 (06:01→14:30)
[2019-12-07] MEDS: DEXT 5%/0.9% NACL 1,000 ML IV SCH ×2 (06:49→13:30)
[2019-12-07] MEDS: PANTOPRAZOLE SODIUM 40 MG/VIAL IV SCH ×2 (09:20→20:10)
[2019-12-07] MEDS: FAMOTIDINE 20MG/2ML VIAL IV SCH (09:20)
[2019-12-07] MEDS: HYDRALAZINE 10 MG in SODIUM CHLORIDE 0.9% 49.5 ML IV PRN (11:43)
[2019-12-07] MEDS: SODIUM CHLORIDE 0.9% 1,000 ML IV SCH ×2 (12:50→22:08)
[2019-12-07] MEDS: LACTULOSE 20G/30ML UDC NG SCH ×2 (14:30→20:10)
[2019-12-07] MEDS: BISACODYL 10MG SUPP PR SCH ×2 (14:30→20:10)
[2019-12-08] VITALS: BP 141/96
[2019-12-08] MEDS: LACTULOSE 20G/30ML UDC NG SCH ×3 (02:53→15:00)
[2019-12-08] MEDS: BISACODYL 10MG SUPP PR SCH ×3 (02:53→14:00)
[2019-12-08] MEDS: DEXT 5%/0.9% NACL 1,000 ML IV SCH ×2 (02:54→09:30)
[2019-12-08 04:00] VITALS: BP 135/98
[2019-12-08] MEDS: SODIUM CHLORIDE 0.9% INJ 3ML FLUSH IVF SCH ×4 (06:00→21:00)
[2019-12-08] MEDS ORDERED: NORMAL SALINE 0.9% 10 ML SYR ONE (07:10)
[2019-12-08] MEDS ORDERED: BUPIVACAINE HCL 0.5% (5MG/ML) 50ML ONE (07:10)
[2019-12-08] MEDS ORDERED: BACITRACIN 50,000 UNITS/VIAL ONE (07:11)
[2019-12-08] MEDS ORDERED: FENTANYL CITRATE/PF 50MCG/ML 2ML VIAL ONE (07:33)
[2019-12-08] MEDS ORDERED: ROCURONIUM BROMIDE 10MG/ML VIAL 5ML IV ONE (07:34)
[2019-12-08] MEDS ORDERED: MIDAZOLAM HCL 2 MG/2 ML VIAL ONE (07:34)
[2019-12-08] MEDS ORDERED: PROPOFOL 200MG/20ML VIAL IV ONE (07:34)
[2019-12-08] MEDS ORDERED: PHENYLEPHRINE HCL 10 MG/ML 1ML (IV VIAL) IV ONE (07:53)
[2019-12-08] MEDS: SODIUM CHLORIDE 0.9% 1,000 ML IV SCH ×2 (08:08→18:45)
[2019-12-08] MEDS: PANTOPRAZOLE SODIUM 40 MG/VIAL IV SCH ×2 (08:08→20:59)
[2019-12-08] MEDS: FAMOTIDINE 20MG/2ML VIAL IV SCH (08:08)
[2019-12-08] MEDS ORDERED: ALBUMIN HUMAN 12.5G/250ML (5%) IV ONE (08:14)
[2019-12-08] MEDS ORDERED: LEVOFLOXACIN 500MG PREMIX 100 ML IV ONE (08:14)
[2019-12-08] MEDS ORDERED: ESMOLOL HCL 10MG/ML 10ML VIAL IV ONE (08:45)
[2019-12-08] MEDS ORDERED: ONDANSETRON HCL 4MG/2ML INJ ONE (08:49)
[2019-12-08] MEDS ORDERED: HYDRALAZINE 20MG/ML VIAL IV NR (09:15)
[2019-12-08] MEDS ORDERED: LABETALOL 5MG/ML SYR 20 MG/4 ML SYRINGE IV NR (09:15)
[2019-12-08] MEDS: HYDROMORPHONE HCL/PF 2MG/ML CPJ IV PRN ×7 (09:44→21:00)
[2019-12-08] MEDS ORDERED: ONDANSETRON HCL 4MG/2ML INJ IM NR (10:00)
[2019-12-08] MEDS ORDERED: ONDANSETRON HCL 4MG/2ML INJ IV NR (10:15)
[2019-12-08] MEDS ORDERED: FAMOTIDINE 20MG/2ML VIAL IV ONE (10:58)
[2019-12-08] MEDS ORDERED: MORPHINE SULFATE 2 MG/ML CPJ (NOT FOR IM USE) IV PRN (11:15)
[2019-12-08 14:00] VITALS: BP 134/96
[2019-12-08 15:15] VITALS: BP 131/99
[2019-12-08] MEDS: MORPHINE SULFATE 4 MG/ML CPJ (NOT FOR IM USE) IV PRN ×2 (15:22→19:41)
[2019-12-08] MEDS: DEXT 5%/0.45% NACL KCL 20MEQ/L 1,000 ML IV SCH (19:01)
[2019-12-08 19:33] VITALS: BP 134/94
[2019-12-09] VITALS: BP 135/98
[2019-12-09] MEDS: HYDROMORPHONE HCL/PF 2MG/ML CPJ IV PRN ×6 (01:06→22:12)
[2019-12-09 04:00] VITALS: BP 141/103
[2019-12-09] MEDS: DEXT 5%/0.45% NACL KCL 20MEQ/L 1,000 ML IV SCH ×2 (04:05→12:29)
[2019-12-09] MEDS: SODIUM CHLORIDE 0.9% INJ 3ML FLUSH IVF SCH ×3 (05:11→21:08)
[2019-12-09 06:24] LABS: HEMATOCRIT. 34.8 % (42.0-52.0); MEAN CORPUSCULAR VOLUME 98.9 fL (80.0-94.0); MEAN PLATELET VOLUME 8.9 fl (7.4-10.4); PLATELET 321 x1000/uL (130-400); RED BLOOD CELL COUNT 3.52 mill/uL (4.7-6.1); RED CELL DISTRIBUTION WIDTH 14.7 % (11.6-14.6)
[2019-12-09 06:37] LABS: CHLORIDE 101 mEq/L (98-107)
[2019-12-09 08:00] VITALS: BP 136/101
[2019-12-09] MEDS ORDERED: FAMOTIDINE 20MG/2ML VIAL IV SCH (09:00)
[2019-12-09] MEDS: PANTOPRAZOLE SODIUM 40 MG/VIAL IV SCH ×2 (09:21→21:08)
[2019-12-09 12:00] VITALS: BP 133/90
[2019-12-09] MEDS: LEVOFLOXACIN 500MG PREMIX 100 ML IV SCH (12:36)
[2019-12-09 13:16] LABS: PLATELET ESTIMATE NORMAL
[2019-12-09 16:00] VITALS: BP 134/95
[2019-12-09] MEDS ORDERED: [UNRECOGNIZED DRUG - REMARK] IV SCH ×2 (18:00)
[2019-12-09] MEDS: FAT EMULSIONS 500 ML IV SCH (19:42)
[2019-12-09 20:00] VITALS: BP 152/102
[2019-12-10] VITALS: BP 138/99
[2019-12-10] MEDS: HYDROMORPHONE HCL/PF 2MG/ML CPJ IV PRN ×6 (02:06→22:19)
[2019-12-10 04:00] VITALS: BP 148/112
[2019-12-10] MEDS: DEXT 10% WATER 1,000 ML IV SCH ×2 (06:06→14:00)
[2019-12-10] MEDS: SODIUM CHLORIDE 0.9% INJ 3ML FLUSH IVF SCH ×3 (06:06→21:03)
[2019-12-10 06:17] LABS: CHLORIDE 101 mEq/L (98-107)
[2019-12-10 06:22] LABS: PHOSPHORUS 2.9 mg/dL (2.5-4.9)
[2019-12-10] MEDS ORDERED: SODIUM BICARBONATE 4% (2.4MEQ) 5ML VIAL IV ONE (07:17)
[2019-12-10] MEDS ORDERED: LIDOCAINE HCL 1% 20ML VIAL (Pyxis) INJ ONE (07:17)
[2019-12-10] MEDS: LEVOFLOXACIN 500MG PREMIX 100 ML IV SCH (09:22)
[2019-12-10] MEDS: PANTOPRAZOLE SODIUM 40 MG/VIAL IV SCH ×2 (09:29→21:03)
[2019-12-10 12:00] VITALS: BP 134/95
[2019-12-10 16:00] VITALS: BP 144/105
[2019-12-10 20:00] VITALS: BP 150/107
[2019-12-10] MEDS: FAT EMULSIONS 500 ML IV SCH (20:54)
[2019-12-10] MEDS: TOTAL PARENTERAL NUTRITION 1,000 ML IV SCH (20:54)
[2019-12-11] VITALS: BP 154/105
[2019-12-11] MEDS: HYDROMORPHONE HCL/PF 2MG/ML CPJ IV PRN ×6 (02:14→20:42)
[2019-12-11 04:00] VITALS: BP 138/97
[2019-12-11] MEDS: SODIUM CHLORIDE 0.9% INJ 3ML FLUSH IVF SCH ×3 (06:02→22:17)
[2019-12-11 08:00] VITALS: BP 168/111
[2019-12-11] MEDS ORDERED: HYDRALAZINE 20MG/ML VIAL IV PRN (08:30)
[2019-12-11] MEDS: LEVOFLOXACIN 500MG PREMIX 100 ML IV SCH (08:32)
[2019-12-11] MEDS: PANTOPRAZOLE SODIUM 40 MG/VIAL IV SCH ×2 (08:32→21:55)
[2019-12-11 09:30] VITALS: BP 157/80
[2019-12-11] MEDS: TOTAL PARENTERAL NUTRITION 1,000 ML IV SCH (09:30)
[2019-12-11 12:00] VITALS: BP 142/97
[2019-12-11 12:02] LABS: CHLORIDE 95 mEq/L (98-107)
[2019-12-11 12:08] LABS: PHOSPHORUS 2.7 mg/dL (2.5-4.9)
[2019-12-11 16:00] VITALS: BP 143/105
[2019-12-11] MEDS ORDERED: MAGNESIUM 2 G PREMIX 50 ML IV NR (17:00)
[2019-12-11] MEDS ORDERED: TOTAL PARENTERAL NUTRITION IV SCH (21:00)
[2019-12-12 00:19] VITALS: BP 135/98
[2019-12-12] MEDS: HYDROMORPHONE HCL/PF 2MG/ML CPJ IV PRN ×6 (00:49→21:16)
[2019-12-12 04:00] VITALS: BP 144/98
[2019-12-12] MEDS: SODIUM CHLORIDE 0.9% INJ 3ML FLUSH IVF SCH ×3 (05:15→22:12)
[2019-12-12] MEDS: FAT EMULSIONS 500 ML IV SCH ×2 (05:15→22:43)
[2019-12-12 08:00] VITALS: BP 141/95
[2019-12-12] MEDS: PANTOPRAZOLE SODIUM 40 MG/VIAL IV SCH ×2 (08:19→21:15)
[2019-12-12 08:34] LABS: CHLORIDE 95 mEq/L (98-107)
[2019-12-12 08:40] LABS: PHOSPHORUS 2.3 mg/dL (2.5-4.9)
[2019-12-12 12:00] VITALS: BP 139/98
[2019-12-12 16:00] VITALS: BP 144/101
[2019-12-12 20:00] VITALS: BP 152/108
[2019-12-12] MEDS ORDERED: TOTAL PARENTERAL NUTRITION IV SCH (21:00)
[2019-12-13] VITALS: BP 133/90
[2019-12-13] MEDS: HYDROMORPHONE HCL/PF 2MG/ML CPJ IV PRN ×6 (01:19→23:09)
[2019-12-13 04:00] VITALS: BP 136/93
[2019-12-13] MEDS: FAT EMULSIONS 500 ML IV SCH ×2 (05:49→21:13)
[2019-12-13] MEDS: SODIUM CHLORIDE 0.9% INJ 3ML FLUSH IVF SCH ×3 (06:01→21:15)
[2019-12-13 08:00] VITALS: BP 137/79
[2019-12-13] MEDS: PANTOPRAZOLE SODIUM 40 MG/VIAL IV SCH ×2 (08:38→21:13)
[2019-12-13 12:00] VITALS: BP 124/88
[2019-12-13 16:57] VITALS: BP 132/96
[2019-12-13 20:00] VITALS: BP 107/58
[2019-12-13] MEDS ORDERED: TOTAL PARENTERAL NUTRITION IV SCH (21:00)
[2019-12-14] VITALS: BP 115/85
[2019-12-14 04:00] VITALS: BP 129/73
[2019-12-14] MEDS: HYDROMORPHONE HCL/PF 2MG/ML CPJ IV PRN ×4 (05:06→21:50)
[2019-12-14] MEDS: SODIUM CHLORIDE 0.9% INJ 3ML FLUSH IVF SCH ×3 (05:27→20:30)
[2019-12-14 08:00] VITALS: BP 121/85
[2019-12-14] MEDS: PANTOPRAZOLE SODIUM 40 MG/VIAL IV SCH ×2 (09:28→20:30)
[2019-12-14 12:00] VITALS: BP 102/76
[2019-12-14 12:14] LABS: CHLORIDE 97 mEq/L (98-107)
[2019-12-14 16:00] VITALS: BP 125/91
[2019-12-14] MEDS ORDERED: ACETAMINOPHEN 650MG SUPP PR PRN (16:45)
[2019-12-14] MEDS: ACETAMINOPHEN 650MG SUPP PR PRN (17:02)
[2019-12-14] MEDS: TOTAL PARENTERAL NUTRITION IV SCH (18:19)
[2019-12-14 20:00] VITALS: BP 120/92
[2019-12-14] MEDS: FAT EMULSIONS 500 ML IV SCH (20:30)
[2019-12-15 00:17] VITALS: BP 118/86
[2019-12-15] MEDS: HYDROMORPHONE HCL/PF 2MG/ML CPJ IV PRN ×6 (01:54→22:32)
[2019-12-15 04:00] VITALS: BP 115/86
[2019-12-15] MEDS: SODIUM CHLORIDE 0.9% INJ 3ML FLUSH IVF SCH ×3 (05:05→20:28)
[2019-12-15 08:00] VITALS: BP 107/77
[2019-12-15 08:13] LABS: CHLORIDE 100 mEq/L (98-107)
[2019-12-15 08:21] LABS: PHOSPHORUS 3.4 mg/dL (2.5-4.9)
[2019-12-15] MEDS: PANTOPRAZOLE SODIUM 40 MG/VIAL IV SCH ×2 (09:20→20:28)
[2019-12-15 12:00] VITALS: BP 137/94
[2019-12-15 16:00] VITALS: BP 115/67
[2019-12-15] MEDS: TOTAL PARENTERAL NUTRITION IV SCH (18:00)
[2019-12-15 20:00] VITALS: BP 119/84
[2019-12-15] MEDS: FAT EMULSIONS 500 ML IV SCH (20:28)
[2019-12-15] MEDS ORDERED: TOTAL PARENTERAL NUTRITION IV SCH (21:00)
[2019-12-15] MEDS: ACETAMINOPHEN 650MG SUPP PR PRN (23:35)
[2019-12-16] VITALS: BP 143/101
[2019-12-16] MEDS: HYDROMORPHONE HCL/PF 2MG/ML CPJ IV PRN ×2 (02:49→08:22)
[2019-12-16 04:00] VITALS: BP 128/89
[2019-12-16] MEDS: SODIUM CHLORIDE 0.9% INJ 3ML FLUSH IVF SCH ×2 (05:53→21:04)
[2019-12-16 08:00] VITALS: BP 143/98
[2019-12-16] MEDS: PANTOPRAZOLE SODIUM 40 MG/VIAL IV SCH (09:50)
[2019-12-16 12:49] VITALS: BP 125/89
[2019-12-16 15:28] LABS: BASOPHILS % 0.4 % (0.0-2.0); EOSINOPHILS % 1.5 % (0.0-5.0); HEMATOCRIT. 34.4 % (42.0-52.0); HEMOGLOBIN. 11.8 g/dL (14.0-18.0); MEAN CORPUSCULAR HEMOGLOBIN 33.4 pg (28.0-32.0); MEAN CORPUSCULAR VOLUME 97.4 fL (80.0-94.0); MEAN PLATELET VOLUME 8.8 fl (7.4-10.4); MONOCYTES % 14.1 % (2.0-8.0); PLATELET 319 x1000/uL (130-400); RED BLOOD CELL COUNT 3.53 mill/uL (4.7-6.1); RED CELL DISTRIBUTION WIDTH 14.8 % (11.6-14.6)
[2019-12-16] MEDS ORDERED: HYDROCODONE/ACETAMINOPHEN 5/325MG TABLET PO PRN (17:15)
[2019-12-16] MEDS: FAMOTIDINE 20MG TABLET PO SCH (17:48)
[2019-12-16 17:58] VITALS: BP 141/99
[2019-12-16] MEDS: HYDROCODONE/ACETAMINOPHEN 10/325MG TABLET PO PRN (21:04)
[2019-12-16] MEDS: TOTAL PARENTERAL NUTRITION 1,100 ML IV SCH (22:17)
[2019-12-16] MEDS: FAT EMULSIONS 500 ML IV SCH (22:17)
[2019-12-17] VITALS: BP 135/90
[2019-12-17 04:00] VITALS: BP 122/88
[2019-12-17] MEDS: HYDROCODONE/ACETAMINOPHEN 10/325MG TABLET PO PRN ×4 (04:02→18:45)
[2019-12-17] MEDS: SODIUM CHLORIDE 0.9% INJ 3ML FLUSH IVF SCH ×3 (06:00→22:28)
[2019-12-17 08:00] VITALS: BP 121/91
[2019-12-17] MEDS: FAMOTIDINE 20MG TABLET PO SCH (09:23)
[2019-12-17 11:44] LABS: HEMATOCRIT. 32.4 % (42.0-52.0); HEMOGLOBIN. 11.1 g/dL (14.0-18.0); MEAN CORPUSCULAR HEMOGLOBIN 33.3 pg (28.0-32.0); MEAN CORPUSCULAR VOLUME 97.4 fL (80.0-94.0); MEAN PLATELET VOLUME 8.1 fl (7.4-10.4); PLATELET 332 x1000/uL (130-400); RED BLOOD CELL COUNT 3.32 mill/uL (4.7-6.1); RED CELL DISTRIBUTION WIDTH 14.8 % (11.6-14.6)
[2019-12-17 11:57] LABS: CHLORIDE 100 mEq/L (98-107)
[2019-12-17 12:00] VITALS: BP 123/91
[2019-12-17 12:50] LABS: PLATELET ESTIMATE NORMAL
[2019-12-17 16:00] VITALS: BP 143/95
[2019-12-17] MEDS ORDERED: KETOROLAC 30MG/ML VIAL IV PRN (16:00)
[2019-12-17] MEDS: DIPHENHYDRAMINE 50MG/ML VIAL IV PRN ×2 (18:13→22:04)
[2019-12-17 20:00] VITALS: BP 144/103
[2019-12-17] MEDS: MORPHINE SULFATE 2 MG/ML CPJ (NOT FOR IM USE) IV PRN (20:27)
[2019-12-17] MEDS ORDERED: TOTAL PARENTERAL NUTRITION 1,100 ML IV SCH (21:00)
[2019-12-17] MEDS: FAT EMULSIONS 500 ML IV SCH (21:04)
[2019-12-17] MEDS: TOTAL PARENTERAL NUTRITION 1,100 ML IV SCH (21:07)
[2019-12-18] VITALS: BP 158/105
[2019-12-18] MEDS: HYDROCODONE/ACETAMINOPHEN 10/325MG TABLET PO PRN (00:17)
[2019-12-18] MEDS: MORPHINE SULFATE 2 MG/ML CPJ (NOT FOR IM USE) IV PRN (02:45)
[2019-12-18 04:00] VITALS: BP 132/96
[2019-12-18 08:00] VITALS: BP 139/88
[2019-12-18] MEDS: FAMOTIDINE 20MG TABLET PO SCH (08:56)
[2019-12-18] MEDS: HYDROMORPHONE HCL/PF 2MG/ML CPJ IV PRN ×3 (10:52→23:37)
[2019-12-18 12:00] VITALS: BP 129/92
[2019-12-18 12:57] LABS: EOSINOPHILS % 2.8 % (0.0-5.0); HEMATOCRIT. 32.4 % (42.0-52.0); HEMOGLOBIN. 10.9 g/dL (14.0-18.0); LYMPHOCYTES % 8.5 % (20.0-50.0); MEAN CORPUSCULAR HEMOGLOBIN 32.7 pg (28.0-32.0); MEAN CORPUSCULAR VOLUME 96.8 fL (80.0-94.0); MEAN PLATELET VOLUME 7.9 fl (7.4-10.4); MONOCYTES % 12.3 % (2.0-8.0); NEUTROPHILS % 75.4 % (40.0-76.0); PLATELET 373 x1000/uL (130-400); RED BLOOD CELL COUNT 3.34 mill/uL (4.7-6.1)
[2019-12-18 13:03] LABS: CHLORIDE 102 mEq/L (98-107)
[2019-12-18 20:00] VITALS: BP 133/93
[2019-12-18] MEDS: DIPHENHYDRAMINE 50MG/ML VIAL IV PRN (20:57)
[2019-12-18] MEDS: TOTAL PARENTERAL NUTRITION 1,100 ML IV SCH (20:57)
[2019-12-18] MEDS: SODIUM CHLORIDE 0.9% INJ 3ML FLUSH IVF SCH (21:07)
[2019-12-18 23:44] VITALS: BP 147/105
[2019-12-19 04:00] VITALS: BP 127/82
[2019-12-19] MEDS: DIPHENHYDRAMINE 50MG/ML VIAL IV PRN (05:11)
[2019-12-19] MEDS: SODIUM CHLORIDE 0.9% INJ 3ML FLUSH IVF SCH ×2 (05:53→21:08)
[2019-12-19] MEDS: HYDROMORPHONE HCL/PF 2MG/ML CPJ IV PRN ×3 (06:38→18:45)
[2019-12-19 08:00] VITALS: BP 141/101
[2019-12-19] MEDS: FAMOTIDINE 20MG TABLET PO SCH (08:28)
[2019-12-19 12:00] VITALS: BP 104/70
[2019-12-19 16:00] VITALS: BP 137/89
[2019-12-19 20:00] VITALS: BP 114/75
[2019-12-19] MEDS: TOTAL PARENTERAL NUTRITION 1,100 ML IV SCH (21:08)
[2019-12-20] VITALS: BP 120/82
[2019-12-20] MEDS: HYDROCODONE/ACETAMINOPHEN 10/325MG TABLET PO PRN (00:35)
[2019-12-20] MEDS: HYDROMORPHONE HCL/PF 2MG/ML CPJ IV PRN ×3 (00:50→14:27)
[2019-12-20 04:00] VITALS: BP 115/77
[2019-12-20 08:00] VITALS: BP 125/99
[2019-12-20] MEDS: FAMOTIDINE 20MG TABLET PO SCH (08:18)
[2019-12-20] MEDS ORDERED: FAT EMULSIONS 500 ML IV SCH (09:00)
[2019-12-20 10:15] LABS: CHLORIDE 100 mEq/L (98-107)
[2019-12-20 10:26] LABS: PHOSPHORUS 3.4 mg/dL (2.5-4.9)
[2019-12-20 11:26] VITALS: BP 128/98
[2019-12-20 13:58] VITALS: BP 128/98
[2019-12-20 14:27] VITALS: BP 128/98
[2019-12-20] MEDS: SODIUM CHLORIDE 0.9% INJ 3ML FLUSH IVF SCH (14:27)
[2019-12-20] MEDS ORDERED: TOTAL PARENTERAL NUTRITION 1,100 ML IV SCH (21:00)
== END 2019-12-20 16:20 | disposition home or self-care (01) | DRG 224 ==
LOC: ER 08:30 → 6EST 13:05 → CANRESERV 13:31 → ENRESERV 13:31 → 7WST 12-08 13:53
PROVIDERS: ADMIT Family Medicine; ATTEND Family Medicine
PROC: 0DH68UZ Insertion of Feeding Device into Stomach, Via Natural or Artificial Opening Endoscopic (ICD-10-PCS; 2019-11-27)
PROC: 0DN80ZZ Release Small Intestine, Open Approach (ICD-10-PCS; principal; 2019-12-08)
PROC: 02HV33Z Insertion of Infusion Device into Superior Vena Cava, Percutaneous Approach (ICD-10-PCS; 2019-12-10)
PROC: B548ZZA Ultrasonography of Superior Vena Cava, Guidance (ICD-10-PCS; 2019-12-10)
PROC: B5181ZA Fluoroscopy of Superior Vena Cava using Low Osmolar Contrast, Guidance (ICD-10-PCS; 2019-12-10)
DX: K56.50 Intestinal adhesions [bands], unspecified as to partial versus complete obstruction (principal); K85.20 Alcohol induced acute pancreatitis without necrosis or infection; E46 Unspecified protein-calorie malnutrition; K57.91 Diverticulosis of intestine, part unspecified, without perforation or abscess with bleeding; D50.9 Iron deficiency anemia, unspecified; F12.90 Cannabis use, unspecified, uncomplicated; E86.0 Dehydration; E87.6 Hypokalemia; K56.609 Unspecified intestinal obstruction, unspecified as to partial versus complete obstruction; F17.200 Nicotine dependence, unspecified, uncomplicated; J45.909 Unspecified asthma, uncomplicated; K86.1 Other chronic pancreatitis; K56.0 Paralytic ileus; K91.89 Other postprocedural complications and disorders of digestive system; Z68.22 Body mass index [BMI] 22.0-22.9, adult; Z79.899 Other long term (current) drug therapy
CPT/HCPCS: 36415; 36573; 71045; 74018; 74176; 74177; 74183; 74250; 76937; 80048; 80053; 80061; 80305; 81003; 82150; 82378; 82962; 83605; 83735; 84100; 84134; 84478; 85014; 85018; 85025; 86301; 94002; 96374; 97116; 97162; 99285; A9577; C1725; C9113; J0360; J1170; J1200; J1885; J1956; J2250; J2270; J2370; J2405; J2543; J2704; J3010; J3411; J3475; J3480; J3490; J7030; J7042; J7060; J7070; P9041; Q9963

== ENCOUNTER 2019-12-30 15:41 | Inpatient (IN) | payer MEDICAID, OTHER ==
[~2019-12-30] VITALS: Ht 165.1 cm; Wt 48.1 kg
[2019-12-30] MEDS ORDERED: ONDANSETRON HCL 4MG/2ML INJ IV STA (16:07)
[2019-12-30] MEDS ORDERED: SODIUM CHLORIDE 0.9% 1,000 ML IV ONE (16:07)
[2019-12-30] MEDS ORDERED: MORPHINE SULFATE 4 MG/ML CPJ (NOT FOR IM USE) IV STA (16:07)
[2019-12-30 17:07] LABS: BASOPHILS % 0.3 % (0.0-2.0); EOSINOPHILS % 0.8 % (0.0-5.0); HEMATOCRIT. 35.8 % (42.0-52.0); HEMOGLOBIN. 12.3 g/dL (14.0-18.0); LYMPHOCYTES % 8.7 % (20.0-50.0); MEAN CORPUSCULAR HEMOGLOBIN 33.1 pg (28.0-32.0); MEAN CORPUSCULAR VOLUME 96.2 fL (80.0-94.0); MEAN PLATELET VOLUME 8.9 fl (7.4-10.4); MONOCYTES % 8.8 % (2.0-8.0); NEUTROPHILS % 81.4 % (40.0-76.0); PLATELET 426 x1000/uL (130-400); RED BLOOD CELL COUNT 3.72 mill/uL (4.7-6.1); RED CELL DISTRIBUTION WIDTH 15.1 % (11.6-14.6)
[2019-12-30 17:18] LABS: CHLORIDE 102 mEq/L (98-107)
[2019-12-30 17:22] LABS: ETHANOL BLOOD < 10 mg/dL
[2019-12-30] MEDS ORDERED: ONDANSETRON HCL 4MG/2ML INJ IV ONE (19:00)
[2019-12-30] MEDS ORDERED: MORPHINE SULFATE 4 MG/ML CPJ (NOT FOR IM USE) IV ONE (19:00)
[2019-12-30] MEDS: MORPHINE SULFATE 4 MG/ML CPJ (NOT FOR IM USE) IV PRN (21:16)
[2019-12-30] MEDS ORDERED: ONDANSETRON HCL 4MG/2ML INJ IV PRN (22:00)
[2019-12-30 22:30] VITALS: BP 138/98
[2019-12-30] MEDS ORDERED: DEXT 5%/0.45% NACL KCL 20MEQ/L 1,000 ML IV SCH (23:00)
[2019-12-31] VITALS: BP 138/98
[2019-12-31] MEDS: MORPHINE SULFATE 4 MG/ML CPJ (NOT FOR IM USE) IV PRN ×4 (03:17→21:32)
[2019-12-31 04:00] VITALS: BP 113/81
[2019-12-31] MEDS: DEXT 5%/0.45% NACL KCL 20MEQ/L 1,000 ML IV SCH ×2 (05:27→09:17)
[2019-12-31 08:00] VITALS: BP 121/93
[2019-12-31 08:54] LABS: BASOPHILS % 0.5 % (0.0-2.0); EOSINOPHILS % 3.3 % (0.0-5.0); HEMATOCRIT. 33.6 % (42.0-52.0); HEMOGLOBIN. 11.4 g/dL (14.0-18.0); LYMPHOCYTES % 13.3 % (20.0-50.0); MEAN CORPUSCULAR HEMOGLOBIN 32.8 pg (28.0-32.0); MEAN CORPUSCULAR VOLUME 96.2 fL (80.0-94.0); MEAN PLATELET VOLUME 9.1 fl (7.4-10.4); NEUTROPHILS % 70.9 % (40.0-76.0); PLATELET 383 x1000/uL (130-400); RED BLOOD CELL COUNT 3.49 mill/uL (4.7-6.1); RED CELL DISTRIBUTION WIDTH 15.3 % (11.6-14.6)
[2019-12-31 09:44] LABS: CHLORIDE 105 mEq/L (98-107)
[2019-12-31 12:00] VITALS: BP 128/88
[2019-12-31] MEDS ORDERED: DIATR MEGLU/DIATRIZOATE SOLN 120ML ONE (12:17)
[2019-12-31 13:11] LABS: CLARITY URINE CLEAR (CLEAR); COLOR URINE DARK YELLOW (YELLOW); KETONES URINE 1+ (NEGATIVE); LEUKOCYTE ESTERASE URINE TRACE (NEGATIVE); NITRITE URINE NEGATIVE (NEGATIVE); OCCULT BLOOD URINE NEGATIVE (NEGATIVE); PROTEIN URINE 1+ (NEGATIVE); SPECIFIC GRAVITY URINE 1.037 (1.005-1.030)
[2019-12-31 13:37] LABS: *AMPHETAMINES SCREEN URINE NEGATIVE (NEGATIVE); *BARBITURATES SCREEN URINE NEGATIVE (NEGATIVE); *BENZODIAZEPINES SCREEN URINE NEGATIVE (NEGATIVE); *COCAINE SCREEN URINE NEGATIVE (NEGATIVE); METHADONE URINE SCREEN NEGATIVE (NEGATIVE)
[2019-12-31 13:38] LABS: CANNABINOID URINE SCREEN PRESUMTIVE POSITIVE (NEGATIVE); OPIATES URINE SCREEN PRESUMTIVE POSITIVE (NEGATIVE); PHENCYCLIDINE URINE SCREEN NEGATIVE (NEGATIVE)
[2019-12-31 20:00] VITALS: BP 130/100
[2020-01-01] VITALS: BP 112/83
[2020-01-01 04:00] VITALS: BP 108/74
[2020-01-01] MEDS: MORPHINE SULFATE 4 MG/ML CPJ (NOT FOR IM USE) IV PRN ×2 (04:09→11:12)
[2020-01-01] MEDS: DEXT 5%/0.45% NACL KCL 20MEQ/L 1,000 ML IV SCH ×2 (06:35→11:02)
[2020-01-01 07:15] LABS: CHLORIDE 104 mEq/L (98-107)
[2020-01-01 08:00] VITALS: BP 114/75
[2020-01-01] MEDS ORDERED: POTASSIUM CHLORIDE 20MEQ TABLET SR PO NR (08:45)
[2020-01-01 12:00] VITALS: BP 119/74
[2020-01-01 12:04] VITALS: BP 119/75
== END 2020-01-01 13:05 | disposition home or self-care (01) | DRG 247 ==
LOC: ER 15:41 → 6EST 20:43 → EDBEDREQTM 20:45 → EDBEDREQ 20:45 → EDBEDREQSVC 20:45 → ENRESERV 21:58
PROVIDERS: ADMIT Internal Medicine; ATTEND Internal Medicine
DX: K56.600 Partial intestinal obstruction, unspecified as to cause (principal); K85.90 Acute pancreatitis without necrosis or infection, unspecified; R18.8 Other ascites; E87.1 Hypo-osmolality and hyponatremia; E44.1 Mild protein-calorie malnutrition; K52.9 Noninfective gastroenteritis and colitis, unspecified; D64.9 Anemia, unspecified; K74.60 Unspecified cirrhosis of liver; K57.90 Diverticulosis of intestine, part unspecified, without perforation or abscess without bleeding; F10.10 Alcohol abuse, uncomplicated; J45.909 Unspecified asthma, uncomplicated; F12.90 Cannabis use, unspecified, uncomplicated; Z98.890 Other specified postprocedural states
CPT/HCPCS: 36415; 71045; 74018; 74176; 74250; 80048; 80053; 80305; 80320; 81003; 83880; 84484; 85025; 87493; 93005; 99285; J2270; J2405; J7030; Q9963; G0480

== ENCOUNTER 2020-02-04 17:01 | Emergency (ER) | payer MEDICAID ==
[~2020-02-04] VITALS: Ht 165.1 cm; Wt 59.0 kg
[2020-02-04 20:06] VITALS: BP 121/86
[2020-02-05] MEDS ORDERED: RIVAROXABAN 15 MG TABLET PO SCH (17:00)
== END 2020-02-04 20:15 | disposition home or self-care (01) ==
LOC: ER 17:01
DX: I82.4Z2 Acute embolism and thrombosis of unspecified deep veins of left distal lower extremity (principal); J45.909 Unspecified asthma, uncomplicated; Z98.890 Other specified postprocedural states
CPT/HCPCS: 99283

== ENCOUNTER 2020-02-17 12:56 | Inpatient (IN) | payer MEDICAID ==
[~2020-02-17] VITALS: Ht 165.1 cm; Wt 59.4 kg
[2020-02-17 17:01] LABS: BASOPHILS % 0.7 % (0.0-2.0); EOSINOPHILS % 0.5 % (0.0-5.0); HEMATOCRIT. 39.1 % (42.0-52.0); HEMOGLOBIN. 13.2 g/dL (14.0-18.0); LYMPHOCYTES % 18.9 % (20.0-50.0); MEAN CORPUSCULAR HEMOGLOBIN 30.9 pg (28.0-32.0); MEAN CORPUSCULAR VOLUME 91.5 fL (80.0-94.0); MONOCYTES % 9.1 % (2.0-8.0); NEUTROPHILS % 70.8 % (40.0-76.0); PLATELET 393 x1000/uL (130-400); RED BLOOD CELL COUNT 4.27 mill/uL (4.7-6.1)
[2020-02-17 17:05] LABS: CHLORIDE 98 mEq/L (98-107)
[2020-02-17 17:08] LABS: INR 1.1; PROTHROMBIN TIME 11.5 sec (9.6-11.0)
[2020-02-17] MEDS ORDERED: IPRATROPIUM/ALBUTEROL 0.5-3(2.5)MG/3ML NEB HHN PRN (17:45)
[2020-02-17] MEDS ORDERED: ONDANSETRON HCL 4MG/2ML INJ IV PRN (17:45)
[2020-02-17 18:18] LABS: CLARITY URINE CLOUDY (CLEAR); COLOR URINE DARK YELLOW (YELLOW); KETONES URINE TRACE (NEGATIVE); LEUKOCYTE ESTERASE URINE 1+ (NEGATIVE); NITRITE URINE NEGATIVE (NEGATIVE); OCCULT BLOOD URINE NEGATIVE (NEGATIVE); PROTEIN URINE 1+ (NEGATIVE); SPECIFIC GRAVITY URINE 1.039 (1.005-1.030)
[2020-02-17] MEDS ORDERED: POTASSIUM CHLORIDE INJ 40 MEQ in DEXT 5% WATER 500 ML IV NR (18:30)
[2020-02-17] MEDS: DOCUSATE SODIUM 100MG CAPSULE PO SCH (18:45)
[2020-02-17] MEDS ORDERED: CEFTRIAXONE 1 G PREMIX 50 ML IV ONE (19:45)
[2020-02-17 22:39] VITALS: BP 138/92
[2020-02-17] MEDS ORDERED: TLXL5 MT (23:41)
[2020-02-18] VITALS: BP 114/81
[2020-02-18] MEDS: ACETAMINOPHEN 325MG TABLET PO PRN (00:19)
[2020-02-18 04:00] VITALS: BP 126/89
[2020-02-18 08:00] VITALS: BP 113/82
[2020-02-18 08:08] LABS: BASOPHILS % 0.4 % (0.0-2.0); EOSINOPHILS % 2.2 % (0.0-5.0); HEMATOCRIT. 31.6 % (42.0-52.0); HEMOGLOBIN. 10.7 g/dL (14.0-18.0); LYMPHOCYTES % 17.6 % (20.0-50.0); MEAN CORPUSCULAR HEMOGLOBIN 30.8 pg (28.0-32.0); MEAN CORPUSCULAR VOLUME 90.9 fL (80.0-94.0); MEAN PLATELET VOLUME 7.9 fl (7.4-10.4); MONOCYTES % 13.6 % (2.0-8.0); NEUTROPHILS % 66.2 % (40.0-76.0); PLATELET 337 x1000/uL (130-400); RED BLOOD CELL COUNT 3.47 mill/uL (4.7-6.1)
[2020-02-18] MEDS: DOCUSATE SODIUM 100MG CAPSULE PO SCH ×2 (08:08→16:09)
[2020-02-18 08:14] LABS: CHLORIDE 98 mEq/L (98-107)
[2020-02-18 08:23] LABS: LDL CHOLESTEROL 42 mg/dL (5-100)
[2020-02-18 08:24] LABS: HDL CHOLESTEROL 38 mg/dL (40-59)
[2020-02-18] MEDS ORDERED: POTASSIUM CHLORIDE INJ 40 MEQ in DEXT 5% WATER 250 ML IV NR (11:00)
[2020-02-18 12:00] VITALS: BP 118/91
[2020-02-18 16:00] VITALS: BP 135/105
[2020-02-18] MEDS: CLONIDINE 0.1MG TABLET PO PRN (16:22)
[2020-02-18] MEDS ORDERED: FOLIC ACID 1 MG, THIAMINE HCL 100 MG, MVI, ADULT NO.1 10 ML in DEXTROSE 5% WATER 250 ML IV SCH ×4 (18:15)
[2020-02-18 20:00] VITALS: BP 115/85
[2020-02-18 21:16] LABS: FERRITIN 507 ng/mL (22-322)
[2020-02-18 21:23] LABS: VITAMIN B12 SERUM 696 pg/mL (211-911)
[2020-02-19] VITALS (14 sets, daily range): BP systolic 96–125; BP diastolic 71–86
[2020-02-19] MEDS ORDERED: LIDOCAINE HCL 1% 20ML VIAL (Pyxis) INJ ONE ×2 (07:54→08:57)
[2020-02-19] MEDS ORDERED: SODIUM BICARBONATE 4% (2.4MEQ) 5ML VIAL IV ONE ×2 (07:55→08:56)
[2020-02-19] MEDS ORDERED: IOHEXOL-300 100 ML BOTTLE ONE (08:57)
[2020-02-19] MEDS ORDERED: CEFAZOLIN 1000MG PREMIX 50 ML IV ONE ×2 (09:00→09:02)
[2020-02-19] MEDS: MULTIVITAMINS,THER W-MINERALS TABLET PO SCH (09:49)
[2020-02-19] MEDS: THIAMINE HCL 100MG TABLET PO SCH (09:49)
[2020-02-19] MEDS: DOCUSATE SODIUM 100MG CAPSULE PO SCH ×2 (09:49→16:58)
[2020-02-19] MEDS: FOLIC ACID 1MG TABLET PO SCH (09:49)
[2020-02-19] MEDS: FERROUS SULFATE 325MG TABLET PO SCH (16:58)
[2020-02-19] MEDS: ACETAMINOPHEN 325MG TABLET PO PRN (18:17)
[2020-02-20] VITALS: BP 105/80
[2020-02-20] MEDS: ACETAMINOPHEN 325MG TABLET PO PRN (00:24)
[2020-02-20 04:00] VITALS: BP 112/86
[2020-02-20 04:24] LABS: CHLORIDE 97 mEq/L (98-107)
[2020-02-20 04:35] LABS: BASOPHILS % 0.2 % (0.0-2.0); EOSINOPHILS % 0.5 % (0.0-5.0); HEMATOCRIT. 37.8 % (42.0-52.0); HEMOGLOBIN. 12.6 g/dL (14.0-18.0); MEAN CORPUSCULAR HEMOGLOBIN 30.3 pg (28.0-32.0); MEAN CORPUSCULAR VOLUME 91.1 fL (80.0-94.0); MEAN PLATELET VOLUME 8.4 fl (7.4-10.4); MONOCYTES % 10.7 % (2.0-8.0); NEUTROPHILS % 79.6 % (40.0-76.0); PLATELET 304 x1000/uL (130-400); RED BLOOD CELL COUNT 4.15 mill/uL (4.7-6.1); RED CELL DISTRIBUTION WIDTH 16.5 % (11.6-14.6)
[2020-02-20 08:00] VITALS: BP 116/90
[2020-02-20] MEDS: MULTIVITAMINS,THER W-MINERALS TABLET PO SCH (08:12)
[2020-02-20] MEDS: FOLIC ACID 1MG TABLET PO SCH (08:12)
[2020-02-20] MEDS: FERROUS SULFATE 325MG TABLET PO SCH ×3 (08:12→18:08)
[2020-02-20] MEDS: DOCUSATE SODIUM 100MG CAPSULE PO SCH ×2 (08:12→18:08)
[2020-02-20] MEDS: THIAMINE HCL 100MG TABLET PO SCH (08:12)
[2020-02-20] MEDS ORDERED: HYDROCODONE/ACETAMINOPHEN 5/325MG TABLET PO PRN (08:30)
[2020-02-20] MEDS: HYDROMORPHONE HCL/PF 2MG/ML CPJ IV PRN ×3 (08:36→21:17)
[2020-02-20 09:07] LABS: FOLATE HEMATOCRIT 36.9 % (37.5-51.0)
[2020-02-20 12:00] VITALS: BP 139/105
[2020-02-20] MEDS ORDERED: BACTERIOSTATIC SODIUM CHLORIDE 0.9% 30ML VIAL IJ ONE (13:03)
[2020-02-20 16:00] VITALS: BP 124/94
[2020-02-20] MEDS ORDERED: FENTANYL CITRATE/PF 50MCG/ML 2ML VIAL ONE (16:41)
[2020-02-20] MEDS ORDERED: MIDAZOLAM HCL 5 MG/5 ML VIAL ONE (16:41)
[2020-02-20] MEDS ORDERED: FENTANYL CITRATE/PF 50MCG/ML 2ML VIAL IV PRN (16:52)
[2020-02-20] MEDS ORDERED: MIDAZOLAM HCL 5 MG/5 ML VIAL IV PRN (16:53)
[2020-02-20] MEDS ORDERED: DIAZEPAM 5 MG/ML 2ML CPJ IV PRN (16:59)
[2020-02-20] MEDS ORDERED: DIAZEPAM 5 MG/ML 2ML CPJ ONE (17:02)
[2020-02-20] MEDS: SUCRALFATE 1 G/10 ML UDC PO SCH ×2 (18:07→23:12)
[2020-02-20] MEDS: PANTOPRAZOLE SODIUM 40 MG/VIAL IV SCH (18:08)
[2020-02-20 20:00] VITALS: BP 147/101
[2020-02-21] VITALS: BP 157/119
[2020-02-21] MEDS: CLONIDINE 0.1MG TABLET PO PRN (03:23)
[2020-02-21] MEDS: HYDROMORPHONE HCL/PF 2MG/ML CPJ IV PRN ×4 (03:24→22:14)
[2020-02-21] MEDS: SUCRALFATE 1 G/10 ML UDC PO SCH ×3 (05:14→18:07)
[2020-02-21 07:44] LABS: BASOPHILS % 0.2 % (0.0-2.0); EOSINOPHILS % 0.2 % (0.0-5.0); HEMATOCRIT. 37.7 % (42.0-52.0); HEMOGLOBIN. 12.8 g/dL (14.0-18.0); LYMPHOCYTES % 7.3 % (20.0-50.0); MEAN CORPUSCULAR HEMOGLOBIN 30.9 pg (28.0-32.0); MEAN CORPUSCULAR VOLUME 90.9 fL (80.0-94.0); MEAN PLATELET VOLUME 8.8 fl (7.4-10.4); MONOCYTES % 10.9 % (2.0-8.0); NEUTROPHILS % 81.4 % (40.0-76.0); PLATELET 270 x1000/uL (130-400); RED BLOOD CELL COUNT 4.14 mill/uL (4.7-6.1); RED CELL DISTRIBUTION WIDTH 16.1 % (11.6-14.6)
[2020-02-21 08:00] VITALS: BP 107/80
[2020-02-21 08:06] LABS: CHLORIDE 96 mEq/L (98-107)
[2020-02-21] MEDS: PANTOPRAZOLE SODIUM 40 MG/VIAL IV SCH (10:02)
[2020-02-21] MEDS: DOCUSATE SODIUM 100MG CAPSULE PO SCH ×2 (10:02→18:05)
[2020-02-21] MEDS: MULTIVITAMINS,THER W-MINERALS TABLET PO SCH (10:03)
[2020-02-21] MEDS: FOLIC ACID 1MG TABLET PO SCH (10:03)
[2020-02-21] MEDS: THIAMINE HCL 100MG TABLET PO SCH (10:03)
[2020-02-21] MEDS: FERROUS SULFATE 325MG TABLET PO SCH ×3 (10:03→18:05)
[2020-02-21 12:00] VITALS: BP 123/89
[2020-02-21 16:00] VITALS: BP 140/107
[2020-02-21 20:00] VITALS: BP 113/88
[2020-02-22] VITALS: BP 136/104
[2020-02-22] MEDS: CLONIDINE 0.1MG TABLET PO PRN (00:13)
[2020-02-22] MEDS: SUCRALFATE 1 G/10 ML UDC PO SCH ×4 (00:13→17:54)
[2020-02-22 04:00] VITALS: BP 114/87
[2020-02-22 04:17] LABS: BASOPHILS % 0.4 % (0.0-2.0); EOSINOPHILS % 0.5 % (0.0-5.0); HEMATOCRIT. 34.7 % (42.0-52.0); HEMOGLOBIN. 11.7 g/dL (14.0-18.0); LYMPHOCYTES % 9.5 % (20.0-50.0); MEAN CORPUSCULAR HEMOGLOBIN 30.7 pg (28.0-32.0); MONOCYTES % 12.4 % (2.0-8.0); NEUTROPHILS % 77.2 % (40.0-76.0); PLATELET 256 x1000/uL (130-400); RED BLOOD CELL COUNT 3.81 mill/uL (4.7-6.1); RED CELL DISTRIBUTION WIDTH 15.8 % (11.6-14.6)
[2020-02-22 04:23] LABS: CHLORIDE 98 mEq/L (98-107)
[2020-02-22 04:28] LABS: PHOSPHORUS 3.7 mg/dL (2.5-4.9)
[2020-02-22] MEDS: HYDROMORPHONE HCL/PF 2MG/ML CPJ IV PRN ×3 (04:32→18:05)
[2020-02-22] MEDS: FERROUS SULFATE 325MG TABLET PO SCH ×3 (06:39→16:34)
[2020-02-22 08:00] VITALS: BP 125/89
[2020-02-22] MEDS ORDERED: DIATR MEGLU/DIATRIZOATE SOLN 120ML ONE (08:59)
[2020-02-22] MEDS: PANTOPRAZOLE SODIUM 40 MG/VIAL IV SCH (09:38)
[2020-02-22] MEDS: FOLIC ACID 1MG TABLET PO SCH (09:38)
[2020-02-22] MEDS: THIAMINE HCL 100MG TABLET PO SCH (09:38)
[2020-02-22] MEDS: DOCUSATE SODIUM 100MG CAPSULE PO SCH ×2 (09:38→16:35)
[2020-02-22] MEDS: MULTIVITAMINS,THER W-MINERALS TABLET PO SCH (09:38)
[2020-02-22 12:00] VITALS: BP 149/114
[2020-02-22] MEDS: DEXT 5%/LACTATED RINGERS 1,000 ML IV SCH ×2 (12:48→18:50)
[2020-02-22 13:06] LABS: FOLATE RBC 1089 ng/mL (>498)
[2020-02-22 16:00] VITALS: BP 140/106
[2020-02-22 20:00] VITALS: BP 126/96
[2020-02-23] VITALS: BP 129/97
[2020-02-23] MEDS: SUCRALFATE 1 G/10 ML UDC PO SCH ×5 (00:02→18:51)
[2020-02-23] MEDS: HYDROMORPHONE HCL/PF 2MG/ML CPJ IV PRN ×4 (00:03→18:51)
[2020-02-23 04:00] VITALS: BP 116/83
[2020-02-23 07:15] LABS: CHLORIDE 99 mEq/L (98-107)
[2020-02-23 07:22] LABS: HEMATOCRIT. 33.9 % (42.0-52.0); HEMOGLOBIN. 11.6 g/dL (14.0-18.0); MEAN CORPUSCULAR HEMOGLOBIN 31.3 pg (28.0-32.0); MEAN CORPUSCULAR VOLUME 91.1 fL (80.0-94.0); MEAN PLATELET VOLUME 8.4 fl (7.4-10.4); PLATELET 301 x1000/uL (130-400); RED BLOOD CELL COUNT 3.72 mill/uL (4.7-6.1); RED CELL DISTRIBUTION WIDTH 16.3 % (11.6-14.6)
[2020-02-23 08:00] VITALS: BP 133/91
[2020-02-23 09:22] LABS: PLATELET ESTIMATE NORMAL
[2020-02-23] MEDS: DOCUSATE SODIUM 100MG CAPSULE PO SCH ×2 (10:18→18:51)
[2020-02-23] MEDS: MULTIVITAMINS,THER W-MINERALS TABLET PO SCH (10:18)
[2020-02-23] MEDS: FERROUS SULFATE 325MG TABLET PO SCH ×3 (10:18→18:51)
[2020-02-23] MEDS: PANTOPRAZOLE SODIUM 40 MG/VIAL IV SCH (10:18)
[2020-02-23] MEDS: THIAMINE HCL 100MG TABLET PO SCH (10:18)
[2020-02-23] MEDS: FOLIC ACID 1MG TABLET PO SCH (10:23)
[2020-02-23 12:00] VITALS: BP 116/86
[2020-02-23 20:00] VITALS: BP 133/98
[2020-02-23] MEDS: DEXT 5%/LACTATED RINGERS 1,000 ML IV SCH (21:14)
[2020-02-24] VITALS: BP 124/87
[2020-02-24] MEDS: HYDROMORPHONE HCL/PF 2MG/ML CPJ IV PRN ×4 (00:55→20:10)
[2020-02-24] MEDS: SUCRALFATE 1 G/10 ML UDC PO SCH ×4 (00:55→17:09)
[2020-02-24 04:00] VITALS: BP 117/87
[2020-02-24] MEDS: FERROUS SULFATE 325MG TABLET PO SCH ×3 (06:20→17:09)
[2020-02-24] MEDS: DEXT 5%/LACTATED RINGERS 1,000 ML IV SCH ×3 (06:22→21:59)
[2020-02-24 08:00] VITALS: BP 97/74
[2020-02-24] MEDS: DOCUSATE SODIUM 100MG CAPSULE PO SCH ×2 (08:32→17:09)
[2020-02-24] MEDS: PANTOPRAZOLE SODIUM 40 MG/VIAL IV SCH (08:32)
[2020-02-24] MEDS: FOLIC ACID 1MG TABLET PO SCH (08:32)
[2020-02-24] MEDS: MULTIVITAMINS,THER W-MINERALS TABLET PO SCH (08:32)
[2020-02-24] MEDS: THIAMINE HCL 100MG TABLET PO SCH (08:32)
[2020-02-24 08:52] LABS: BASOPHILS % 0.1 % (0.0-2.0); EOSINOPHILS % 0.7 % (0.0-5.0); HEMATOCRIT. 30.2 % (42.0-52.0); HEMOGLOBIN. 10.3 g/dL (14.0-18.0); LYMPHOCYTES % 10.1 % (20.0-50.0); MEAN CORPUSCULAR VOLUME 90.7 fL (80.0-94.0); MEAN PLATELET VOLUME 8.3 fl (7.4-10.4); MONOCYTES % 11.6 % (2.0-8.0); NEUTROPHILS % 77.5 % (40.0-76.0); PLATELET 259 x1000/uL (130-400); RED BLOOD CELL COUNT 3.34 mill/uL (4.7-6.1)
[2020-02-24 09:15] LABS: CHLORIDE 101 mEq/L (98-107)
[2020-02-24 12:00] VITALS: BP 111/79
[2020-02-24 16:00] VITALS: BP 109/76
[2020-02-24 20:08] VITALS: BP 113/89
[2020-02-25] VITALS (7 sets, daily range): BP systolic 114–133; BP diastolic 86–99
[2020-02-25] MEDS: SUCRALFATE 1 G/10 ML UDC PO SCH ×4 (00:07→18:00)
[2020-02-25] MEDS: HYDROMORPHONE HCL/PF 2MG/ML CPJ IV PRN ×4 (02:13→22:08)
[2020-02-25] MEDS: FERROUS SULFATE 325MG TABLET PO SCH ×3 (06:26→17:15)
[2020-02-25 08:12] LABS: BASOPHILS % 0.3 % (0.0-2.0); EOSINOPHILS % 0.8 % (0.0-5.0); HEMATOCRIT. 32.6 % (42.0-52.0); HEMOGLOBIN. 11.1 g/dL (14.0-18.0); LYMPHOCYTES % 14.4 % (20.0-50.0); MEAN CORPUSCULAR HEMOGLOBIN 30.8 pg (28.0-32.0); MEAN CORPUSCULAR VOLUME 90.8 fL (80.0-94.0); MEAN PLATELET VOLUME 8.2 fl (7.4-10.4); MONOCYTES % 10.5 % (2.0-8.0); PLATELET 281 x1000/uL (130-400); RED BLOOD CELL COUNT 3.59 mill/uL (4.7-6.1); RED CELL DISTRIBUTION WIDTH 15.9 % (11.6-14.6)
[2020-02-25 08:18] LABS: CHLORIDE 102 mEq/L (98-107)
[2020-02-25] MEDS: DOCUSATE SODIUM 100MG CAPSULE PO SCH ×2 (08:40→17:00)
[2020-02-25] MEDS: MULTIVITAMINS,THER W-MINERALS TABLET PO SCH (08:40)
[2020-02-25] MEDS: FOLIC ACID 1MG TABLET PO SCH (08:40)
[2020-02-25] MEDS: PANTOPRAZOLE SODIUM 40 MG/VIAL IV SCH (08:40)
[2020-02-25] MEDS: THIAMINE HCL 100MG TABLET PO SCH (08:41)
[2020-02-25] MEDS: DEXT 5%/LACTATED RINGERS 1,000 ML IV SCH (08:55)
[2020-02-25] MEDS ORDERED: KCL 20MEQ/100ML PREMIX 100 ML IV NR (10:00)
[2020-02-25] MEDS: SODIUM CHLORIDE 0.9% 1,000 ML IV SCH (13:23)
[2020-02-25] MEDS ORDERED: POTASSIUM CHLORIDE INJ 40 MEQ in DEXT 5% WATER 250 ML IV ONE (14:00)
[2020-02-25] MEDS ORDERED: HYDROMORPHONE HCL/PF 2MG/ML CPJ IM PRN (21:45)
[2020-02-26] MEDS: SUCRALFATE 1 G/10 ML UDC PO SCH ×5 (00:03→23:21)
[2020-02-26 04:00] VITALS: BP 146/109
[2020-02-26] MEDS: HYDROMORPHONE HCL/PF 2MG/ML CPJ IV PRN ×4 (04:09→23:01)
[2020-02-26] MEDS: FERROUS SULFATE 325MG TABLET PO SCH ×3 (06:21→16:48)
[2020-02-26 08:27] VITALS: BP 142/105
[2020-02-26] MEDS: THIAMINE HCL 100MG TABLET PO SCH (09:06)
[2020-02-26] MEDS: PANTOPRAZOLE SODIUM 40 MG/VIAL IV SCH (09:06)
[2020-02-26] MEDS: FOLIC ACID 1MG TABLET PO SCH (09:06)
[2020-02-26] MEDS: MULTIVITAMINS,THER W-MINERALS TABLET PO SCH (09:06)
[2020-02-26] MEDS: DOCUSATE SODIUM 100MG CAPSULE PO SCH ×2 (09:06→16:48)
[2020-02-26 12:30] VITALS: BP 140/100
[2020-02-26 12:35] LABS: BASOPHILS % 0.5 % (0.0-2.0); EOSINOPHILS % 0.1 % (0.0-5.0); HEMATOCRIT. 36.8 % (42.0-52.0); HEMOGLOBIN. 12.3 g/dL (14.0-18.0); LYMPHOCYTES % 7.6 % (20.0-50.0); MEAN CORPUSCULAR HEMOGLOBIN 30.6 pg (28.0-32.0); MEAN CORPUSCULAR VOLUME 91.2 fL (80.0-94.0); MEAN PLATELET VOLUME 7.5 fl (7.4-10.4); MONOCYTES % 8.2 % (2.0-8.0); NEUTROPHILS % 83.6 % (40.0-76.0); PLATELET 325 x1000/uL (130-400); RED BLOOD CELL COUNT 4.03 mill/uL (4.7-6.1); RED CELL DISTRIBUTION WIDTH 16.5 % (11.6-14.6)
[2020-02-26 12:54] LABS: CHLORIDE 103 mEq/L (98-107)
[2020-02-26 16:00] VITALS: BP_SYST 129; BP_SYST 131; BP_DIAS 103; BP_DIAS 72
[2020-02-26] MEDS: SODIUM CHLORIDE 0.9% 1,000 ML IV SCH (17:41)
[2020-02-26 19:35] VITALS: BP 134/92
[2020-02-27] VITALS: BP 126/96
[2020-02-27 04:00] VITALS: BP 131/97
[2020-02-27] MEDS: HYDROMORPHONE HCL/PF 2MG/ML CPJ IV PRN ×3 (05:02→18:59)
[2020-02-27 05:25] LABS: CHLORIDE 101 mEq/L (98-107)
[2020-02-27 06:02] LABS: BASOPHILS % 0.5 % (0.0-2.0); EOSINOPHILS % 0.6 % (0.0-5.0); HEMATOCRIT. 33.7 % (42.0-52.0); HEMOGLOBIN. 11.3 g/dL (14.0-18.0); LYMPHOCYTES % 10.3 % (20.0-50.0); MEAN CORPUSCULAR HEMOGLOBIN 30.4 pg (28.0-32.0); MEAN CORPUSCULAR VOLUME 90.4 fL (80.0-94.0); MEAN PLATELET VOLUME 8.2 fl (7.4-10.4); MONOCYTES % 11.6 % (2.0-8.0); PLATELET 294 x1000/uL (130-400); RED BLOOD CELL COUNT 3.73 mill/uL (4.7-6.1); RED CELL DISTRIBUTION WIDTH 16.1 % (11.6-14.6)
[2020-02-27] MEDS: SUCRALFATE 1 G/10 ML UDC PO SCH ×3 (06:33→17:07)
[2020-02-27] MEDS: FERROUS SULFATE 325MG TABLET PO SCH ×3 (06:33→17:07)
[2020-02-27 08:00] VITALS: BP 132/100
[2020-02-27] MEDS: THIAMINE HCL 100MG TABLET PO SCH (08:41)
[2020-02-27] MEDS: PANTOPRAZOLE SODIUM 40 MG/VIAL IV SCH (08:41)
[2020-02-27] MEDS: FOLIC ACID 1MG TABLET PO SCH (08:41)
[2020-02-27] MEDS: MULTIVITAMINS,THER W-MINERALS TABLET PO SCH (08:42)
[2020-02-27] MEDS: DOCUSATE SODIUM 100MG CAPSULE PO SCH ×2 (08:42→17:07)
[2020-02-27] MEDS ORDERED: HYDROCODONE/ACETAMINOPHEN 5/325MG TABLET PO PRN (10:00)
[2020-02-27] MEDS: SIMETHICONE 80MG TABLET CHEW PO SCH ×3 (11:53→21:52)
[2020-02-27 12:00] VITALS: BP 130/101
[2020-02-27 16:00] VITALS: BP 134/96
[2020-02-27] MEDS: SODIUM CHLORIDE 0.9% 1,000 ML IV SCH (17:06)
[2020-02-27 20:00] VITALS: BP 135/106
[2020-02-28] VITALS (7 sets, daily range): BP systolic 126–136; BP diastolic 84–99
[2020-02-28] MEDS: SUCRALFATE 1 G/10 ML UDC PO SCH ×4 (00:08→19:04)
[2020-02-28] MEDS: SODIUM CHLORIDE 0.9% 1,000 ML IV SCH ×2 (00:10→23:24)
[2020-02-28] MEDS: HYDROMORPHONE HCL/PF 2MG/ML CPJ IV PRN ×4 (01:01→19:06)
[2020-02-28] MEDS: FERROUS SULFATE 325MG TABLET PO SCH ×3 (06:26→19:04)
[2020-02-28 07:23] LABS: BASOPHILS % 0.2 % (0.0-2.0); EOSINOPHILS % 0.7 % (0.0-5.0); HEMATOCRIT. 32.3 % (42.0-52.0); MEAN CORPUSCULAR HEMOGLOBIN 30.9 pg (28.0-32.0); MEAN CORPUSCULAR VOLUME 90.4 fL (80.0-94.0); MEAN PLATELET VOLUME 8.1 fl (7.4-10.4); MONOCYTES % 12.4 % (2.0-8.0); NEUTROPHILS % 76.7 % (40.0-76.0); PLATELET 261 x1000/uL (130-400); RED BLOOD CELL COUNT 3.58 mill/uL (4.7-6.1); RED CELL DISTRIBUTION WIDTH 16.2 % (11.6-14.6)
[2020-02-28 07:41] LABS: CHLORIDE 101 mEq/L (98-107)
[2020-02-28] MEDS: PANTOPRAZOLE SODIUM 40 MG/VIAL IV SCH (09:24)
[2020-02-28] MEDS: MULTIVITAMINS,THER W-MINERALS TABLET PO SCH (09:24)
[2020-02-28] MEDS: DOCUSATE SODIUM 100MG CAPSULE PO SCH ×2 (09:24→17:00)
[2020-02-28] MEDS: THIAMINE HCL 100MG TABLET PO SCH (09:25)
[2020-02-28] MEDS: SIMETHICONE 80MG TABLET CHEW PO SCH ×4 (09:25→21:01)
[2020-02-28] MEDS: FOLIC ACID 1MG TABLET PO SCH (09:25)
[2020-02-28] MEDS ORDERED: LIDOCAINE HCL 1% 20ML VIAL (Pyxis) INJ ONE (10:06)
[2020-02-28] MEDS ORDERED: SODIUM BICARBONATE 4% (2.4MEQ) 5ML VIAL IV ONE (10:06)
[2020-02-28 12:12] LABS: INR 1.1
[2020-02-29 00:57] VITALS: BP 131/89
[2020-02-29] MEDS: SUCRALFATE 1 G/10 ML UDC PO SCH ×4 (01:15→17:04)
[2020-02-29] MEDS: HYDROMORPHONE HCL/PF 2MG/ML CPJ IV PRN ×4 (01:16→21:45)
[2020-02-29 04:55] VITALS: BP 113/84
[2020-02-29] MEDS: FERROUS SULFATE 325MG TABLET PO SCH ×3 (06:19→17:04)
[2020-02-29] MEDS: SIMETHICONE 80MG TABLET CHEW PO SCH ×4 (06:45→21:45)
[2020-02-29 06:55] LABS: BASOPHILS % 0.4 % (0.0-2.0); EOSINOPHILS % 0.7 % (0.0-5.0); HEMATOCRIT. 29.8 % (42.0-52.0); HEMOGLOBIN. 10.2 g/dL (14.0-18.0); LYMPHOCYTES % 13.9 % (20.0-50.0); MEAN CORPUSCULAR HEMOGLOBIN 30.6 pg (28.0-32.0); MEAN CORPUSCULAR VOLUME 89.3 fL (80.0-94.0); MEAN PLATELET VOLUME 7.9 fl (7.4-10.4); MONOCYTES % 12.2 % (2.0-8.0); NEUTROPHILS % 72.8 % (40.0-76.0); PLATELET 260 x1000/uL (130-400); RED BLOOD CELL COUNT 3.33 mill/uL (4.7-6.1); RED CELL DISTRIBUTION WIDTH 15.9 % (11.6-14.6)
[2020-02-29 07:34] LABS: CHLORIDE 102 mEq/L (98-107)
[2020-02-29 08:00] VITALS: BP 140/60
[2020-02-29] MEDS: FOLIC ACID 1MG TABLET PO SCH (08:19)
[2020-02-29] MEDS: DOCUSATE SODIUM 100MG CAPSULE PO SCH ×2 (08:19→17:04)
[2020-02-29] MEDS: PANTOPRAZOLE SODIUM 40 MG/VIAL IV SCH (08:19)
[2020-02-29] MEDS: THIAMINE HCL 100MG TABLET PO SCH (08:19)
[2020-02-29] MEDS: MULTIVITAMINS,THER W-MINERALS TABLET PO SCH (08:20)
[2020-02-29 12:00] VITALS: BP 128/90
[2020-02-29 16:00] VITALS: BP 102/76
[2020-02-29 20:00] VITALS: BP 113/83
[2020-02-29] MEDS: SODIUM CHLORIDE 0.9% 1,000 ML IV SCH (22:39)
[2020-03-01] VITALS (7 sets, daily range): BP systolic 115–143; BP diastolic 62–98
[2020-03-01] MEDS: SUCRALFATE 1 G/10 ML UDC PO SCH ×5 (00:34→23:39)
[2020-03-01] MEDS: HYDROMORPHONE HCL/PF 2MG/ML CPJ IV PRN ×4 (04:08→23:57)
[2020-03-01] MEDS: FERROUS SULFATE 325MG TABLET PO SCH ×3 (06:33→17:32)
[2020-03-01] MEDS: SIMETHICONE 80MG TABLET CHEW PO SCH ×4 (06:36→20:11)
[2020-03-01 06:52] LABS: BASOPHILS % 0.2 % (0.0-2.0); EOSINOPHILS % 0.8 % (0.0-5.0); HEMATOCRIT. 30.1 % (42.0-52.0); HEMOGLOBIN. 10.3 g/dL (14.0-18.0); MEAN CORPUSCULAR HEMOGLOBIN 30.7 pg (28.0-32.0); MEAN PLATELET VOLUME 7.9 fl (7.4-10.4); MONOCYTES % 11.5 % (2.0-8.0); NEUTROPHILS % 75.5 % (40.0-76.0); PLATELET 265 x1000/uL (130-400); RED BLOOD CELL COUNT 3.34 mill/uL (4.7-6.1)
[2020-03-01 07:28] LABS: CHLORIDE 102 mEq/L (98-107)
[2020-03-01] MEDS: MULTIVITAMINS,THER W-MINERALS TABLET PO SCH (09:32)
[2020-03-01] MEDS: PANTOPRAZOLE SODIUM 40 MG/VIAL IV SCH (09:32)
[2020-03-01] MEDS: THIAMINE HCL 100MG TABLET PO SCH (09:32)
[2020-03-01] MEDS: DOCUSATE SODIUM 100MG CAPSULE PO SCH ×2 (09:33→17:32)
[2020-03-01] MEDS: FOLIC ACID 1MG TABLET PO SCH (09:33)
[2020-03-01] MEDS: MEROPENEM 1,000 MG in SODIUM CHLORIDE 0.9% 100 ML IV SCH ×2 (12:19→20:11)
[2020-03-01 16:10] LABS: BASOPHILS % 0.3 % (0.0-2.0); EOSINOPHILS % 0.4 % (0.0-5.0); HEMATOCRIT. 33.1 % (42.0-52.0); HEMOGLOBIN. 11.2 g/dL (14.0-18.0); LYMPHOCYTES % 11.9 % (20.0-50.0); MEAN CORPUSCULAR HEMOGLOBIN 30.3 pg (28.0-32.0); MEAN CORPUSCULAR VOLUME 89.9 fL (80.0-94.0); MEAN PLATELET VOLUME 8.2 fl (7.4-10.4); MONOCYTES % 12.1 % (2.0-8.0); NEUTROPHILS % 75.3 % (40.0-76.0); PLATELET 272 x1000/uL (130-400); RED BLOOD CELL COUNT 3.68 mill/uL (4.7-6.1); RED CELL DISTRIBUTION WIDTH 16.1 % (11.6-14.6)
[2020-03-01 16:25] LABS: CHLORIDE 102 mEq/L (98-107)
[2020-03-02] VITALS: BP 136/103
[2020-03-02] MEDS: MEROPENEM 1,000 MG in SODIUM CHLORIDE 0.9% 100 ML IV SCH ×2 (03:50→11:36)
[2020-03-02] MEDS: SODIUM CHLORIDE 0.9% 1,000 ML IV SCH (03:51)
[2020-03-02 04:00] VITALS: BP 119/88
[2020-03-02] MEDS: SUCRALFATE 1 G/10 ML UDC PO SCH ×4 (06:18→23:34)
[2020-03-02] MEDS: HYDROMORPHONE HCL/PF 2MG/ML CPJ IV PRN ×4 (06:19→23:28)
[2020-03-02 08:00] VITALS: BP 107/80
[2020-03-02] MEDS: FOLIC ACID 1MG TABLET PO SCH (09:27)
[2020-03-02] MEDS: PANTOPRAZOLE SODIUM 40 MG/VIAL IV SCH (09:27)
[2020-03-02] MEDS: MULTIVITAMINS,THER W-MINERALS TABLET PO SCH (09:28)
[2020-03-02] MEDS: DOCUSATE SODIUM 100MG CAPSULE PO SCH ×2 (09:28→17:20)
[2020-03-02] MEDS: FERROUS SULFATE 325MG TABLET PO SCH ×3 (09:28→17:20)
[2020-03-02] MEDS: THIAMINE HCL 100MG TABLET PO SCH (09:28)
[2020-03-02] MEDS: SIMETHICONE 80MG TABLET CHEW PO SCH ×4 (09:28→20:11)
[2020-03-02 12:00] VITALS: BP 116/83
[2020-03-02 16:00] VITALS: BP 129/90
[2020-03-02 20:00] VITALS: BP 132/91
[2020-03-02] MEDS: MEROPENEM-0.9% SODIUM CHLORIDE 50 ML IV SCH (20:11)
[2020-03-03] VITALS (7 sets, daily range): BP systolic 117–129; BP diastolic 60–89
[2020-03-03] MEDS: MEROPENEM-0.9% SODIUM CHLORIDE 50 ML IV SCH ×3 (03:52→20:22)
[2020-03-03] MEDS: HYDROMORPHONE HCL/PF 2MG/ML CPJ IV PRN ×4 (05:32→20:21)
[2020-03-03] MEDS: SUCRALFATE 1 G/10 ML UDC PO SCH ×3 (05:32→17:00)
[2020-03-03] MEDS: SODIUM CHLORIDE 0.9% 1,000 ML IV SCH (05:41)
[2020-03-03 06:37] LABS: BASOPHILS % 0.3 % (0.0-2.0); EOSINOPHILS % 0.7 % (0.0-5.0); HEMATOCRIT. 29.8 % (42.0-52.0); HEMOGLOBIN. 10.3 g/dL (14.0-18.0); MEAN CORPUSCULAR HEMOGLOBIN 31.1 pg (28.0-32.0); MONOCYTES % 11.6 % (2.0-8.0); NEUTROPHILS % 76.4 % (40.0-76.0); PLATELET 275 x1000/uL (130-400); RED BLOOD CELL COUNT 3.31 mill/uL (4.7-6.1)
[2020-03-03 07:03] LABS: CHLORIDE 102 mEq/L (98-107)
[2020-03-03] MEDS: DOCUSATE SODIUM 100MG CAPSULE PO SCH ×2 (08:37→17:00)
[2020-03-03] MEDS: THIAMINE HCL 100MG TABLET PO SCH (08:37)
[2020-03-03] MEDS: MULTIVITAMINS,THER W-MINERALS TABLET PO SCH (08:37)
[2020-03-03] MEDS: FERROUS SULFATE 325MG TABLET PO SCH ×3 (08:37→17:00)
[2020-03-03] MEDS: SIMETHICONE 80MG TABLET CHEW PO SCH ×4 (08:37→20:24)
[2020-03-03] MEDS: FOLIC ACID 1MG TABLET PO SCH (08:37)
[2020-03-03] MEDS: PANTOPRAZOLE SODIUM 40 MG/VIAL IV SCH (08:38)
[2020-03-04] VITALS: BP 116/84
[2020-03-04] MEDS: SODIUM CHLORIDE 0.9% 1,000 ML IV SCH ×2 (00:42→21:07)
[2020-03-04] MEDS: SUCRALFATE 1 G/10 ML UDC PO SCH ×5 (00:42→17:16)
[2020-03-04] MEDS: HYDROMORPHONE HCL/PF 2MG/ML CPJ IV PRN ×6 (00:42→21:14)
[2020-03-04 04:00] VITALS: BP 120/86
[2020-03-04] MEDS: MEROPENEM-0.9% SODIUM CHLORIDE 50 ML IV SCH ×3 (05:16→20:04)
[2020-03-04 08:00] VITALS: BP 126/94
[2020-03-04 08:02] LABS: CHLORIDE 103 mEq/L (98-107)
[2020-03-04 08:05] LABS: HEMATOCRIT. 27.3 % (42.0-52.0); HEMOGLOBIN. 9.4 g/dL (14.0-18.0); MEAN CORPUSCULAR HEMOGLOBIN 30.5 pg (28.0-32.0); MEAN CORPUSCULAR VOLUME 88.6 fL (80.0-94.0); MEAN PLATELET VOLUME 7.8 fl (7.4-10.4); PLATELET 292 x1000/uL (130-400); RED BLOOD CELL COUNT 3.08 mill/uL (4.7-6.1); RED CELL DISTRIBUTION WIDTH 16.1 % (11.6-14.6)
[2020-03-04] MEDS: FOLIC ACID 1MG TABLET PO SCH (08:38)
[2020-03-04] MEDS: PANTOPRAZOLE SODIUM 40 MG/VIAL IV SCH (08:38)
[2020-03-04] MEDS: FERROUS SULFATE 325MG TABLET PO SCH ×3 (08:38→17:16)
[2020-03-04] MEDS: DOCUSATE SODIUM 100MG CAPSULE PO SCH ×2 (08:38→17:16)
[2020-03-04] MEDS: MULTIVITAMINS,THER W-MINERALS TABLET PO SCH (08:38)
[2020-03-04] MEDS: SIMETHICONE 80MG TABLET CHEW PO SCH ×4 (08:39→20:06)
[2020-03-04] MEDS: THIAMINE HCL 100MG TABLET PO SCH (08:39)
[2020-03-04 12:00] VITALS: BP 116/85
[2020-03-04 14:28] LABS: PLATELET ESTIMATE NORMAL
[2020-03-04 16:00] VITALS: BP 131/90
[2020-03-04 20:00] VITALS: BP 127/82
[2020-03-05] MEDS: SUCRALFATE 1 G/10 ML UDC PO SCH ×4 (00:12→17:41)
[2020-03-05] MEDS: HYDROMORPHONE HCL/PF 2MG/ML CPJ IV PRN ×6 (01:39→22:25)
[2020-03-05 04:00] VITALS: BP 119/81
[2020-03-05] MEDS: MEROPENEM-0.9% SODIUM CHLORIDE 50 ML IV SCH ×3 (04:53→21:16)
[2020-03-05 07:52] LABS: CHLORIDE 104 mEq/L (98-107)
[2020-03-05 07:54] LABS: BASOPHILS % 0.4 % (0.0-2.0); EOSINOPHILS % 0.9 % (0.0-5.0); HEMATOCRIT. 29.6 % (42.0-52.0); HEMOGLOBIN. 10.1 g/dL (14.0-18.0); LYMPHOCYTES % 10.5 % (20.0-50.0); MEAN CORPUSCULAR HEMOGLOBIN 30.6 pg (28.0-32.0); MEAN CORPUSCULAR VOLUME 89.7 fL (80.0-94.0); MEAN PLATELET VOLUME 8.6 fl (7.4-10.4); MONOCYTES % 10.4 % (2.0-8.0); NEUTROPHILS % 77.8 % (40.0-76.0); PLATELET 242 x1000/uL (130-400)
[2020-03-05 08:29] VITALS: BP 100/74
[2020-03-05] MEDS: FERROUS SULFATE 325MG TABLET PO SCH ×3 (09:43→17:41)
[2020-03-05] MEDS: PANTOPRAZOLE SODIUM 40 MG/VIAL IV SCH (09:43)
[2020-03-05] MEDS: SIMETHICONE 80MG TABLET CHEW PO SCH ×4 (09:43→21:16)
[2020-03-05] MEDS: FOLIC ACID 1MG TABLET PO SCH (09:43)
[2020-03-05] MEDS: MULTIVITAMINS,THER W-MINERALS TABLET PO SCH (09:43)
[2020-03-05 12:00] VITALS: BP 113/75
[2020-03-05] MEDS: DOCUSATE SODIUM 100MG CAPSULE PO SCH ×2 (17:41→17:46)
[2020-03-05] MEDS: THIAMINE HCL 100MG TABLET PO SCH (17:42)
[2020-03-05] MEDS: SODIUM CHLORIDE 0.9% 1,000 ML IV SCH (17:46)
[2020-03-05 20:00] VITALS: BP 108/78
[2020-03-06] VITALS: BP 114/83
[2020-03-06] MEDS: SUCRALFATE 1 G/10 ML UDC PO SCH ×4 (00:25→17:34)
[2020-03-06] MEDS: HYDROMORPHONE HCL/PF 2MG/ML CPJ IV PRN ×5 (02:39→20:11)
[2020-03-06 04:00] VITALS: BP 107/73
[2020-03-06] MEDS: MEROPENEM-0.9% SODIUM CHLORIDE 50 ML IV SCH ×3 (04:22→20:09)
[2020-03-06 06:35] LABS: CHLORIDE 104 mEq/L (98-107)
[2020-03-06 08:00] VITALS: BP 118/87
[2020-03-06] MEDS: PANTOPRAZOLE SODIUM 40 MG/VIAL IV SCH (09:04)
[2020-03-06] MEDS: FOLIC ACID 1MG TABLET PO SCH (09:04)
[2020-03-06] MEDS: SIMETHICONE 80MG TABLET CHEW PO SCH ×4 (09:04→20:10)
[2020-03-06] MEDS: FERROUS SULFATE 325MG TABLET PO SCH ×3 (09:04→17:34)
[2020-03-06] MEDS: MULTIVITAMINS,THER W-MINERALS TABLET PO SCH (09:04)
[2020-03-06] MEDS: DOCUSATE SODIUM 100MG CAPSULE PO SCH ×2 (09:05→17:34)
[2020-03-06] MEDS: THIAMINE HCL 100MG TABLET PO SCH (09:05)
[2020-03-06] MEDS: SODIUM CHLORIDE 0.9% 1,000 ML IV SCH (11:52)
[2020-03-06 12:00] VITALS: BP 102/72
[2020-03-06 16:00] VITALS: BP 121/84
[2020-03-06 16:05] LABS: BASOPHILS % 0.3 % (0.0-2.0); EOSINOPHILS % 1.8 % (0.0-5.0); HEMATOCRIT. 29.7 % (42.0-52.0); HEMOGLOBIN. 10.1 g/dL (14.0-18.0); LYMPHOCYTES % 11.2 % (20.0-50.0); MEAN CORPUSCULAR HEMOGLOBIN 30.3 pg (28.0-32.0); MEAN CORPUSCULAR VOLUME 89.1 fL (80.0-94.0); MEAN PLATELET VOLUME 7.3 fl (7.4-10.4); MONOCYTES % 9.6 % (2.0-8.0); NEUTROPHILS % 77.1 % (40.0-76.0); PLATELET 401 x1000/uL (130-400); RED BLOOD CELL COUNT 3.33 mill/uL (4.7-6.1); RED CELL DISTRIBUTION WIDTH 16.4 % (11.6-14.6)
[2020-03-06 20:00] VITALS: BP 118/85
[2020-03-07] VITALS: BP 131/97
[2020-03-07] MEDS: SUCRALFATE 1 G/10 ML UDC PO SCH ×5 (00:09→23:59)
[2020-03-07] MEDS: HYDROMORPHONE HCL/PF 2MG/ML CPJ IV PRN ×6 (00:10→21:55)
[2020-03-07 04:00] VITALS: BP 119/89
[2020-03-07] MEDS: MEROPENEM-0.9% SODIUM CHLORIDE 50 ML IV SCH ×3 (04:17→20:20)
[2020-03-07] MEDS: FERROUS SULFATE 325MG TABLET PO SCH ×3 (06:26→16:59)
[2020-03-07 08:00] VITALS: BP 110/89
[2020-03-07] MEDS: THIAMINE HCL 100MG TABLET PO SCH (09:09)
[2020-03-07] MEDS: FOLIC ACID 1MG TABLET PO SCH (09:09)
[2020-03-07] MEDS: SIMETHICONE 80MG TABLET CHEW PO SCH ×4 (09:09→20:20)
[2020-03-07] MEDS: PANTOPRAZOLE SODIUM 40 MG/VIAL IV SCH (09:09)
[2020-03-07] MEDS: MULTIVITAMINS,THER W-MINERALS TABLET PO SCH (09:09)
[2020-03-07] MEDS: DOCUSATE SODIUM 100MG CAPSULE PO SCH ×2 (09:09→16:58)
[2020-03-07] MEDS: SODIUM CHLORIDE 0.9% 1,000 ML IV SCH (09:10)
[2020-03-07 12:00] VITALS: BP 115/79
[2020-03-07 16:00] VITALS: BP 135/90
[2020-03-07 20:00] VITALS: BP 105/78
[2020-03-08] VITALS: BP 120/81
[2020-03-08] MEDS: HYDROMORPHONE HCL/PF 2MG/ML CPJ IV PRN ×6 (02:01→22:17)
[2020-03-08] MEDS: MEROPENEM-0.9% SODIUM CHLORIDE 50 ML IV SCH ×3 (03:58→20:11)
[2020-03-08 04:00] VITALS: BP 117/86
[2020-03-08] MEDS: SUCRALFATE 1 G/10 ML UDC PO SCH ×3 (06:12→17:38)
[2020-03-08 06:21] LABS: CHLORIDE 105 mEq/L (98-107)
[2020-03-08 06:24] LABS: BASOPHILS % 0.6 % (0.0-2.0); EOSINOPHILS % 1.4 % (0.0-5.0); HEMATOCRIT. 26.8 % (42.0-52.0); HEMOGLOBIN. 9.1 g/dL (14.0-18.0); LYMPHOCYTES % 14.7 % (20.0-50.0); MEAN CORPUSCULAR HEMOGLOBIN 30.4 pg (28.0-32.0); MEAN CORPUSCULAR VOLUME 89.3 fL (80.0-94.0); MEAN PLATELET VOLUME 7.2 fl (7.4-10.4); MONOCYTES % 12.1 % (2.0-8.0); NEUTROPHILS % 71.2 % (40.0-76.0); PLATELET 420 x1000/uL (130-400); RED BLOOD CELL COUNT 3.01 mill/uL (4.7-6.1)
[2020-03-08 08:00] VITALS: BP 115/79
[2020-03-08] MEDS: DOCUSATE SODIUM 100MG CAPSULE PO SCH ×2 (09:06→17:38)
[2020-03-08] MEDS: THIAMINE HCL 100MG TABLET PO SCH (09:06)
[2020-03-08] MEDS: FOLIC ACID 1MG TABLET PO SCH (09:06)
[2020-03-08] MEDS: MULTIVITAMINS,THER W-MINERALS TABLET PO SCH (09:06)
[2020-03-08] MEDS: SIMETHICONE 80MG TABLET CHEW PO SCH ×4 (09:07→20:17)
[2020-03-08] MEDS: FERROUS SULFATE 325MG TABLET PO SCH ×3 (09:07→17:38)
[2020-03-08] MEDS: PANTOPRAZOLE SODIUM 40 MG/VIAL IV SCH (10:03)
[2020-03-08] MEDS: SODIUM CHLORIDE 0.9% 1,000 ML IV SCH (10:03)
[2020-03-08 12:00] VITALS: BP 125/81
[2020-03-08 16:00] VITALS: BP 123/79
[2020-03-08 20:00] VITALS: BP 124/86
[2020-03-09] VITALS: BP 122/84
[2020-03-09] MEDS: SUCRALFATE 1 G/10 ML UDC PO SCH ×4 (00:32→18:08)
[2020-03-09] MEDS: SODIUM CHLORIDE 0.9% 1,000 ML IV SCH ×2 (02:01→21:00)
[2020-03-09] MEDS: HYDROMORPHONE HCL/PF 2MG/ML CPJ IV PRN ×6 (02:02→22:27)
[2020-03-09] MEDS: MEROPENEM-0.9% SODIUM CHLORIDE 50 ML IV SCH ×3 (03:42→20:58)
[2020-03-09 04:00] VITALS: BP 135/93
[2020-03-09] MEDS: FERROUS SULFATE 325MG TABLET PO SCH ×3 (07:51→18:08)
[2020-03-09] MEDS: SIMETHICONE 80MG TABLET CHEW PO SCH ×4 (07:51→20:58)
[2020-03-09 08:00] VITALS: BP 122/98
[2020-03-09] MEDS: MULTIVITAMINS,THER W-MINERALS TABLET PO SCH (08:06)
[2020-03-09] MEDS: FOLIC ACID 1MG TABLET PO SCH (08:06)
[2020-03-09] MEDS: THIAMINE HCL 100MG TABLET PO SCH (08:06)
[2020-03-09] MEDS: PANTOPRAZOLE SODIUM 40 MG/VIAL IV SCH (08:06)
[2020-03-09] MEDS: DOCUSATE SODIUM 100MG CAPSULE PO SCH ×2 (08:06→18:08)
[2020-03-09 10:46] LABS: BASOPHILS % 0.4 % (0.0-2.0); EOSINOPHILS % 0.2 % (0.0-5.0); HEMATOCRIT. 31.9 % (42.0-52.0); HEMOGLOBIN. 10.6 g/dL (14.0-18.0); LYMPHOCYTES % 8.3 % (20.0-50.0); MEAN CORPUSCULAR HEMOGLOBIN 29.7 pg (28.0-32.0); MEAN PLATELET VOLUME 6.9 fl (7.4-10.4); MONOCYTES % 8.9 % (2.0-8.0); NEUTROPHILS % 82.2 % (40.0-76.0); PLATELET 485 x1000/uL (130-400); RED BLOOD CELL COUNT 3.59 mill/uL (4.7-6.1); RED CELL DISTRIBUTION WIDTH 15.9 % (11.6-14.6)
[2020-03-09 10:48] LABS: CHLORIDE 105 mEq/L (98-107)
[2020-03-09 12:00] VITALS: BP 117/84
[2020-03-09 16:00] VITALS: BP 117/84
[2020-03-09 20:00] VITALS: BP 126/91
[2020-03-10] VITALS: BP 119/85
[2020-03-10] MEDS: SUCRALFATE 1 G/10 ML UDC PO SCH ×4 (00:09→17:41)
[2020-03-10] MEDS: HYDROMORPHONE HCL/PF 2MG/ML CPJ IV PRN ×5 (02:59→20:36)
[2020-03-10 04:00] VITALS: BP 110/75
[2020-03-10] MEDS: MEROPENEM-0.9% SODIUM CHLORIDE 50 ML IV SCH ×2 (04:13→11:24)
[2020-03-10] MEDS: FERROUS SULFATE 325MG TABLET PO SCH ×3 (06:27→16:19)
[2020-03-10 08:07] VITALS: BP 94/67
[2020-03-10] MEDS: FOLIC ACID 1MG TABLET PO SCH (08:08)
[2020-03-10] MEDS: THIAMINE HCL 100MG TABLET PO SCH (08:08)
[2020-03-10] MEDS: MULTIVITAMINS,THER W-MINERALS TABLET PO SCH (08:08)
[2020-03-10] MEDS: SIMETHICONE 80MG TABLET CHEW PO SCH ×4 (08:09→20:58)
[2020-03-10] MEDS: DOCUSATE SODIUM 100MG CAPSULE PO SCH ×2 (08:09→16:11)
[2020-03-10] MEDS: PANTOPRAZOLE SODIUM 40 MG/VIAL IV SCH (08:09)
[2020-03-10 08:20] LABS: BASOPHILS % 0.5 % (0.0-2.0); EOSINOPHILS % 0.8 % (0.0-5.0); HEMATOCRIT. 27.4 % (42.0-52.0); HEMOGLOBIN. 9.4 g/dL (14.0-18.0); LYMPHOCYTES % 15.5 % (20.0-50.0); MEAN CORPUSCULAR HEMOGLOBIN 30.3 pg (28.0-32.0); MEAN CORPUSCULAR VOLUME 88.2 fL (80.0-94.0); MEAN PLATELET VOLUME 6.8 fl (7.4-10.4); MONOCYTES % 12.1 % (2.0-8.0); NEUTROPHILS % 71.1 % (40.0-76.0); PLATELET 432 x1000/uL (130-400); RED CELL DISTRIBUTION WIDTH 15.8 % (11.6-14.6)
[2020-03-10 08:35] LABS: CHLORIDE 103 mEq/L (98-107)
[2020-03-10] MEDS ORDERED: POTASSIUM CHLORIDE 20MEQ TABLET SR PO SCH (10:00)
[2020-03-10 12:00] VITALS: BP 120/86
[2020-03-10 16:00] VITALS: BP 133/94
[2020-03-10] MEDS: SODIUM CHLORIDE 0.9% 1,000 ML IV SCH (17:41)
[2020-03-10 20:00] VITALS: BP 143/92
[2020-03-10] MEDS: MEROPENEM 1000MG in NORMAL SALINE 100ML IV SCH (20:34)
[2020-03-11 00:08] VITALS: BP 131/86
[2020-03-11] MEDS: SUCRALFATE 1 G/10 ML UDC PO SCH ×4 (00:40→17:27)
[2020-03-11] MEDS: HYDROMORPHONE HCL/PF 2MG/ML CPJ IV PRN ×6 (00:40→21:16)
[2020-03-11 04:00] VITALS: BP 118/86
[2020-03-11] MEDS: MEROPENEM 1000MG in NORMAL SALINE 100ML IV SCH ×3 (04:41→20:46)
[2020-03-11] MEDS: FERROUS SULFATE 325MG TABLET PO SCH ×3 (06:28→17:27)
[2020-03-11 08:00] VITALS: BP 129/83
[2020-03-11] MEDS: THIAMINE HCL 100MG TABLET PO SCH (08:45)
[2020-03-11] MEDS: MULTIVITAMINS,THER W-MINERALS TABLET PO SCH (08:45)
[2020-03-11] MEDS: FOLIC ACID 1MG TABLET PO SCH (08:45)
[2020-03-11] MEDS: SIMETHICONE 80MG TABLET CHEW PO SCH ×4 (08:45→20:46)
[2020-03-11] MEDS: DOCUSATE SODIUM 100MG CAPSULE PO SCH ×4 (08:46→17:27)
[2020-03-11] MEDS: PANTOPRAZOLE SODIUM 40 MG/VIAL IV SCH (08:56)
[2020-03-11 12:00] VITALS: BP 103/76
[2020-03-11] MEDS: SODIUM CHLORIDE 0.9% 1,000 ML IV SCH (12:54)
[2020-03-11 16:00] VITALS: BP 136/95
[2020-03-11] MEDS: FUROSEMIDE 40MG/4ML VIAL IVP SCH (18:14)
[2020-03-11 20:00] VITALS: BP 132/96
[2020-03-12] VITALS (7 sets, daily range): BP systolic 102–140; BP diastolic 72–103
[2020-03-12] MEDS: HYDROMORPHONE HCL/PF 2MG/ML CPJ IV PRN ×6 (01:17→22:13)
[2020-03-12] MEDS: FERROUS SULFATE 325MG TABLET PO SCH ×3 (06:53→17:25)
[2020-03-12] MEDS: SUCRALFATE 1 G/10 ML UDC PO SCH ×4 (06:53→17:25)
[2020-03-12] MEDS: SIMETHICONE 80MG TABLET CHEW PO SCH ×4 (06:53→20:37)
[2020-03-12] MEDS: DOCUSATE SODIUM 100MG CAPSULE PO SCH ×3 (09:00→17:25)
[2020-03-12] MEDS: SODIUM CHLORIDE 0.9% 1,000 ML IV SCH (09:00)
[2020-03-12] MEDS: CLONIDINE 0.1MG TABLET PO PRN (09:40)
[2020-03-12] MEDS: THIAMINE HCL 100MG TABLET PO SCH (09:40)
[2020-03-12] MEDS: PANTOPRAZOLE SODIUM 40 MG/VIAL IV SCH (09:41)
[2020-03-12] MEDS: MULTIVITAMINS,THER W-MINERALS TABLET PO SCH (09:41)
[2020-03-12] MEDS: FOLIC ACID 1MG TABLET PO SCH (09:41)
[2020-03-12] MEDS: FUROSEMIDE 40MG/4ML VIAL IVP SCH ×2 (10:14→17:25)
[2020-03-12 12:45] LABS: CHLORIDE 102 mEq/L (98-107)
[2020-03-12 12:50] LABS: PHOSPHORUS 2.8 mg/dL (2.5-4.9)
[2020-03-12] MEDS: CEFTRIAXONE 1 G PREMIX 50 ML IV SCH (22:13)
[2020-03-13] MEDS: HYDROMORPHONE HCL/PF 2MG/ML CPJ IV PRN ×6 (02:17→23:01)
[2020-03-13 04:00] VITALS: BP 117/85
[2020-03-13] MEDS: SUCRALFATE 1 G/10 ML UDC PO SCH ×5 (05:44→23:02)
[2020-03-13 08:00] VITALS: BP 128/96
[2020-03-13] MEDS: FUROSEMIDE 40MG/4ML VIAL IVP SCH (09:03)
[2020-03-13] MEDS: SIMETHICONE 80MG TABLET CHEW PO SCH ×4 (09:03→20:41)
[2020-03-13] MEDS: THIAMINE HCL 100MG TABLET PO SCH (09:03)
[2020-03-13] MEDS: FOLIC ACID 1MG TABLET PO SCH (09:03)
[2020-03-13] MEDS: MULTIVITAMINS,THER W-MINERALS TABLET PO SCH (09:03)
[2020-03-13] MEDS: FERROUS SULFATE 325MG TABLET PO SCH ×3 (09:03→18:59)
[2020-03-13] MEDS: DOCUSATE SODIUM 100MG CAPSULE PO SCH ×2 (09:03→17:25)
[2020-03-13] MEDS: PANTOPRAZOLE SODIUM 40 MG/VIAL IV SCH (09:05)
[2020-03-13 12:00] VITALS: BP 131/84
[2020-03-13 16:00] VITALS: BP 103/73
[2020-03-13] MEDS: FUROSEMIDE 40MG TABLET PO SCH (17:25)
[2020-03-13 20:00] VITALS: BP 130/96
[2020-03-13] MEDS: CEFTRIAXONE 1 G PREMIX 50 ML IV SCH (20:41)
[2020-03-14] VITALS: BP 127/92
[2020-03-14] MEDS: HYDROMORPHONE HCL/PF 2MG/ML CPJ IV PRN ×5 (03:12→20:31)
[2020-03-14 04:00] VITALS: BP 104/77
[2020-03-14 06:55] LABS: INR 1.1; PROTHROMBIN TIME 12.2 sec (9.6-11.0)
[2020-03-14] MEDS: SUCRALFATE 1 G/10 ML UDC PO SCH ×3 (06:58→17:34)
[2020-03-14 07:00] LABS: BASOPHILS % 0.4 % (0.0-2.0); EOSINOPHILS % 0.5 % (0.0-5.0); HEMATOCRIT. 25.5 % (42.0-52.0); HEMOGLOBIN. 8.9 g/dL (14.0-18.0); LYMPHOCYTES % 13.8 % (20.0-50.0); MEAN CORPUSCULAR HEMOGLOBIN 30.1 pg (28.0-32.0); MEAN CORPUSCULAR VOLUME 86.5 fL (80.0-94.0); MEAN PLATELET VOLUME 7.3 fl (7.4-10.4); MONOCYTES % 11.5 % (2.0-8.0); NEUTROPHILS % 73.8 % (40.0-76.0); PLATELET 393 x1000/uL (130-400); RED BLOOD CELL COUNT 2.95 mill/uL (4.7-6.1); RED CELL DISTRIBUTION WIDTH 16.2 % (11.6-14.6)
[2020-03-14 07:26] LABS: CHLORIDE 101 mEq/L (98-107)
[2020-03-14 08:00] VITALS: BP 116/82
[2020-03-14] MEDS: FERROUS SULFATE 325MG TABLET PO SCH ×3 (09:48→17:34)
[2020-03-14] MEDS: DOCUSATE SODIUM 100MG CAPSULE PO SCH ×2 (09:48→16:29)
[2020-03-14] MEDS: SIMETHICONE 80MG TABLET CHEW PO SCH ×4 (09:48→20:32)
[2020-03-14] MEDS: PANTOPRAZOLE SODIUM 40 MG/VIAL IV SCH (09:48)
[2020-03-14] MEDS: MULTIVITAMINS,THER W-MINERALS TABLET PO SCH (09:48)
[2020-03-14] MEDS: FOLIC ACID 1MG TABLET PO SCH (09:48)
[2020-03-14] MEDS: THIAMINE HCL 100MG TABLET PO SCH (09:48)
[2020-03-14] MEDS: FUROSEMIDE 40MG TABLET PO SCH (09:48)
[2020-03-14 12:00] VITALS: BP 129/89
[2020-03-14] MEDS ORDERED: POTASSIUM CHLORIDE 20MEQ TABLET SR PO SCH (12:00)
[2020-03-14 16:00] VITALS: BP 128/94
[2020-03-14 20:00] VITALS: BP 150/111
[2020-03-14] MEDS: ASCORBIC ACID 500 MG TABLET PO SCH (20:32)
[2020-03-14] MEDS: CEFTRIAXONE 1 G PREMIX 50 ML IV SCH (20:32)
[2020-03-15] VITALS: BP 129/92
[2020-03-15] MEDS: SUCRALFATE 1 G/10 ML UDC PO SCH ×3 (00:35→13:25)
[2020-03-15] MEDS: HYDROMORPHONE HCL/PF 2MG/ML CPJ IV PRN ×4 (00:35→13:11)
[2020-03-15 04:00] VITALS: BP 149/100
[2020-03-15 05:19] LABS: BASOPHILS % 0.3 % (0.0-2.0); EOSINOPHILS % 0.5 % (0.0-5.0); HEMOGLOBIN. 9.3 g/dL (14.0-18.0); LYMPHOCYTES % 11.3 % (20.0-50.0); MEAN CORPUSCULAR HEMOGLOBIN 29.7 pg (28.0-32.0); MEAN CORPUSCULAR VOLUME 86.6 fL (80.0-94.0); MEAN PLATELET VOLUME 7.3 fl (7.4-10.4); MONOCYTES % 10.1 % (2.0-8.0); NEUTROPHILS % 77.8 % (40.0-76.0); PLATELET 404 x1000/uL (130-400); RED BLOOD CELL COUNT 3.12 mill/uL (4.7-6.1)
[2020-03-15 05:27] LABS: CHLORIDE 100 mEq/L (98-107)
[2020-03-15 08:00] VITALS: BP 122/82
[2020-03-15] MEDS: MULTIVITAMINS,THER W-MINERALS TABLET PO SCH (08:44)
[2020-03-15] MEDS: FUROSEMIDE 40MG TABLET PO SCH (08:44)
[2020-03-15] MEDS: FOLIC ACID 1MG TABLET PO SCH (08:44)
[2020-03-15] MEDS: PANTOPRAZOLE SODIUM 40 MG/VIAL IV SCH (08:44)
[2020-03-15] MEDS: DOCUSATE SODIUM 100MG CAPSULE PO SCH (08:44)
[2020-03-15] MEDS: FERROUS SULFATE 325MG TABLET PO SCH ×2 (08:44→13:10)
[2020-03-15] MEDS: ASCORBIC ACID 500 MG TABLET PO SCH (08:44)
[2020-03-15] MEDS: THIAMINE HCL 100MG TABLET PO SCH (08:44)
[2020-03-15] MEDS: SIMETHICONE 80MG TABLET CHEW PO SCH ×2 (08:45→13:10)
[2020-03-15] MEDS ORDERED: POTASSIUM CHLORIDE 20MEQ/PACKET PO SCH (09:10)
[2020-03-15 12:00] VITALS: BP 125/84
[2020-03-15 15:14] VITALS: BP 125/84
[2020-03-15] MEDS ORDERED: HYDROCODONE/ACETAMINOPHEN 5/325MG TABLET PO PRN (15:45)
[2020-03-15 16:00] VITALS: BP 120/82
== END 2020-03-15 16:45 | DRG 241 ==
LOC: ER 12:56 → 5WST 20:42 → ENRESERV 20:50 → 6EST 03-12 18:20
PROVIDERS: ADMIT Internal Medicine; ATTEND Internal Medicine
PROC: 06H03DZ Insertion of Intraluminal Device into Inferior Vena Cava, Percutaneous Approach (ICD-10-PCS; 2020-02-19)
PROC: 0W9G3ZZ Drainage of Peritoneal Cavity, Percutaneous Approach (ICD-10-PCS; 2020-02-19)
PROC: 0DB68ZX Excision of Stomach, Via Natural or Artificial Opening Endoscopic, Diagnostic (ICD-10-PCS; 2020-02-20)
PROC: 0W9G3ZZ Drainage of Peritoneal Cavity, Percutaneous Approach (ICD-10-PCS; principal; 2020-02-28)
PROC: 0W9G3ZZ Drainage of Peritoneal Cavity, Percutaneous Approach (ICD-10-PCS; 2020-03-14)
DX: K29.71 Gastritis, unspecified, with bleeding (principal); E43 Unspecified severe protein-calorie malnutrition; K85.90 Acute pancreatitis without necrosis or infection, unspecified; K65.2 Spontaneous bacterial peritonitis; I82.412 Acute embolism and thrombosis of left femoral vein; K70.31 Alcoholic cirrhosis of liver with ascites; D50.9 Iron deficiency anemia, unspecified; F10.10 Alcohol abuse, uncomplicated; E78.00 Pure hypercholesterolemia, unspecified; E87.6 Hypokalemia; K44.9 Diaphragmatic hernia without obstruction or gangrene; K86.0 Alcohol-induced chronic pancreatitis; Z20.828 Contact with and (suspected) exposure to other viral communicable diseases; I10 Essential (primary) hypertension; K20.9 Esophagitis, unspecified; Z95.828 Presence of other vascular implants and grafts; Z87.19 Personal history of other diseases of the digestive system; Z86.718 Personal history of other venous thrombosis and embolism
CPT/HCPCS: 36415; 37191; 49083; 71045; 74018; 74250; 76705; 80048; 80053; 80061; 81003; 82040; 82270; 82607; 82728; 82747; 83540; 83550; 83615; 83735; 83880; 84100; 84443; 84484; 85014; 85025; 86850; 86900; 88108; 88305; 88312; 88313; 93005; 93970; 99285; C1769; C1880; C9113; J0690; J0696; J1170; J1644; J1940; J2185; J2250; J2405; J3010; J3480; J3490; J7030; J7050; J7060; J7121; Q9963; Q9967; U0003-CS